=== PATIENT | male | born 1945 | race Caucasian/White ===

== ENCOUNTER 2016-06-08 15:05 | Inpatient (IN) | payer OTHER, BC ==
[2016-06-08] MEDS ORDERED: REQUIP PO PRN (16:04)
[2016-06-08] MEDS ORDERED: ZOFRAN INJ 4 MG VIAL IVP PRN (16:04)
[2016-06-08] MEDS ORDERED: LEVAQUIN PREMIX IV 750 MG 750 MG/150 ML BAG IV SCH (16:04)
[2016-06-08] MEDS ORDERED: SOLU-Medrol 125 MG VIAL IVP ONE (16:04)
[2016-06-08] MEDS ORDERED: TUSSIONEX PENNKINETIC SUSP PO PRN (16:04)
[2016-06-08] MEDS ORDERED: NS 1000 ML 1,000 ML IV ONE ×2 (16:04→17:00)
[2016-06-08 16:32] VITALS: BMI 26.4
[2016-06-08] MEDS ORDERED: DUONEB 0.5 MG/3 MG ONE (16:43)
[2016-06-08] MEDS ORDERED: SALINE 3% 15 ML NEB TX ONE (16:44)
[2016-06-08] MEDS: ROBITUSSIN DM PO SCH ×2 (16:46→21:57)
[2016-06-08 16:49] LABS: BASOPHILS # (AUTO) 0.1 X10^3/uL (0.0-0.1); EOSINOPHILS # (AUTO) 0.1 x10^3/uL (0.0-0.2); EOSINOPHILS % (AUTO) 1.1 % (0.9-2.9); HEMATOCRIT 38.9 % (42.0-54.0); HEMOGLOBIN 13.4 g/dL (13.5-18.0); LYMPHOCYTES # (AUTO) 1.5 X10^3/uL (1.3-2.9); LYMPHOCYTES % (AUTO) 16.8 % (21.0-51.0); MEAN CORPUSCULAR HEMOGLOBIN 29.4 pg (27.0-34.0); MEAN CORPUSCULAR HGB CONC 34.5 g/dL (33.0-35.0); MEAN CORPUSCULAR VOLUME 85.2 fL (80.0-100.0); MEAN PLATELET VOLUME 7.5 fL (7.4-11.0); MONOCYTES % (AUTO) 11.4 % (0.0-13.0); NEUTROPHILS # (AUTO) 6.1 x10^3/uL (2.2-4.8); NEUTROPHILS % (AUTO) 69.7 % (42.0-75.0); PLATELET COUNT 250 X10^3/uL (150.0-450.0); RED BLOOD COUNT 4.57 X10^6/uL (4.7-6.0); RED CELL DISTRIBUTION WIDTH 13.7 % (11.6-16.5); WHITE BLOOD COUNT 8.8 X10^3/uL (3.6-10.0)
[2016-06-08] MEDS: MAGIC MOUTHWASH MT SCH ×2 (16:49→21:57)
[2016-06-08] MEDS: NS 1000 ML 1,000 ML IV SCH (16:50)
[2016-06-08] MEDS: DUONEB 0.5 MG/3 MG NEB SCH ×2 (17:00→20:33)
[2016-06-08 17:09] LABS: ALANINE AMINOTRANSFERASE 24 Units/L (12-78); ALBUMIN 3.5 g/dL (3.4-5.0); ALKALINE PHOSPHATASE 59 Units/L (46-116); ASPARTATE AMINO TRANSFERASE 19 Units/L (15-37); BLOOD UREA NITROGEN 28 mg/dL (7-18); CALCIUM 8.6 mg/dL (8.5-10.1); CARBON DIOXIDE 29.4 mmol/L (21-32); CHLORIDE 103 mmol/L (98-107); CKMB % 3.6 % (<4); CREATINE KINASE 28 Units/L (39-308); CREATINE KINASE MB < 1.0 ng/mL (0-4.0); CREATININE 2.45 mg/dL (0.70-1.30); GLUCOSE 92 mg/dL (65-99); SODIUM 142 mmol/L (136-145); TOTAL PROTEIN 7.3 g/dL (6.4-8.2); TROPONIN I < 0.02 ng/mL (0-1.5); eGFR BLACK RACES 34 (>60); eGFR NON BLACK RACES 28 (>60)
[2016-06-08] MEDS ORDERED: SALINE 3% 15 ML NEB TX NEB ONE (17:14)
[2016-06-08] MEDS ORDERED: NORCO 5/325 MG TAB PO PRN (17:17)
[2016-06-08 19:38] LABS: BILIRUBIN,URINE NEGATIVE (NEGATIVE); BLOOD/HEMOGLOBIN,URINE 2+ (NEGATIVE); GLUCOSE, URINE NEGATIVE (NEGATIVE); KETONES,URINE NEGATIVE (NEGATIVE); LEUKOCYTE ESTERASE ,URINE NEGATIVE (NEGATIVE); NITRITES,URINE NEGATIVE (NEGATIVE); PROTEIN,URINE 2+ (NEGATIVE); UROBILINOGEN,URINE NORMAL (NORMAL)
[2016-06-08] MEDS: LEVAQUIN PREMIX IV 750 MG 750 MG/150 ML BAG IV SCH (19:39)
[2016-06-08 19:46] LABS: APPEARANCE,URINE CLEAR (CLEAR); COLOR,URINE YELLOW (YELLOW); RBC,URINE 0 /HPF (NEGATIVE)
[2016-06-08 19:47] LABS: BACTERIA,URINE TRACE /HPF (NEGATIVE); SQUAMOUS EPITHELIAL CELL,UR RARE /HPF (NEGATIVE)
[2016-06-08] MEDS: PROTONIX INJ 40 MG VIAL IVP SCH (20:02)
[2016-06-08] MEDS: PEPCID 20 MG IV PREMIX* 20 MG/50 ML BAG IV SCH (20:03)
[2016-06-08 20:44] LABS: CKMB % 4.4 % (<4); CREATINE KINASE 23 Units/L (39-308); CREATINE KINASE MB < 1.0 ng/mL (0-4.0); TROPONIN I < 0.02 ng/mL (0-1.5)
[2016-06-08] MEDS ORDERED: [UNRECOGNIZED DRUG - REMARK] PO SCH (21:00)
[2016-06-08] MEDS: SOLU-Medrol 125 MG VIAL IVP SCH (21:58)
--- NOTE | 2016-06-08 22:35 | RAD ---
HISTORY: Cough Study: Portable AP chest Comparison: 04/08/2013 Findings: The trachea is midline. The cardiac silhouette is unremarkable. The lungs are clear without focal infiltrate or effusion. The bony thorax is unremarkable. IMPRESSION: Stable chest with no acute abnormality seen. Reported By:
[2016-06-09] MEDS: DUONEB 0.5 MG/3 MG NEB SCH ×6 (00:45→21:05)
[2016-06-09 01:09] LABS: CKMB % 4.8 % (<4); CREATINE KINASE 21 Units/L (39-308); CREATINE KINASE MB < 1.0 ng/mL (0-4.0); TROPONIN I < 0.02 ng/mL (0-1.5)
[2016-06-09] MEDS: SOLU-Medrol 125 MG VIAL IVP SCH ×4 (05:18→21:12)
[2016-06-09 05:22] LABS: BASOPHILS % (AUTO) 0.4 % (0.2-1.0); HEMOGLOBIN 11.6 g/dL (13.5-18.0); LYMPHOCYTES # (AUTO) 0.5 X10^3/uL (1.3-2.9); LYMPHOCYTES % (AUTO) 7.4 % (21.0-51.0); MEAN CORPUSCULAR HEMOGLOBIN 29.7 pg (27.0-34.0); MEAN CORPUSCULAR HGB CONC 35.1 g/dL (33.0-35.0); MEAN CORPUSCULAR VOLUME 84.7 fL (80.0-100.0); MEAN PLATELET VOLUME 7.6 fL (7.4-11.0); MONOCYTES # (AUTO) 0.1 x10^3/uL (0.3-0.8); MONOCYTES % (AUTO) 0.9 % (0.0-13.0); NEUTROPHILS # (AUTO) 5.9 x10^3/uL (2.2-4.8); NEUTROPHILS % (AUTO) 91.3 % (42.0-75.0); PLATELET COUNT 211 X10^3/uL (150.0-450.0); RED CELL DISTRIBUTION WIDTH 13.5 % (11.6-16.5); WHITE BLOOD COUNT 6.5 X10^3/uL (3.6-10.0)
[2016-06-09] MEDS: NS 1000 ML 1,000 ML IV SCH ×2 (05:24→17:26)
[2016-06-09 05:35] LABS: ALBUMIN 2.8 g/dL (3.4-5.0); CALCIUM 8.1 mg/dL (8.5-10.1); CARBON DIOXIDE 23.7 mmol/L (21-32); COR CA(FOR HYPOALB) 9.1 mg/dL (8.5-10.1); CREATININE 2.02 mg/dL (0.70-1.30); TOTAL PROTEIN 6.2 g/dL (6.4-8.2)
[2016-06-09 05:53] LABS: PLATELET MORPHOLOGY COMMENT NORMAL (NORMAL)
[2016-06-09] MEDS: PEPCID 20 MG IV PREMIX* 20 MG/50 ML BAG IV SCH ×2 (08:05→20:33)
[2016-06-09] MEDS: MAGIC MOUTHWASH MT SCH ×4 (08:05→20:33)
[2016-06-09] MEDS: PROTONIX INJ 40 MG VIAL IVP SCH (08:06)
[2016-06-09] MEDS: ROBITUSSIN DM PO SCH ×4 (08:06→20:34)
[2016-06-09] MEDS: SINGULAIR TAB 10 MG PO SCH (08:06)
[2016-06-09 08:53] LABS: MYCOPLASMA PNEUMONIAE IGM AB NEGATIVE (NEGATIVE)
[2016-06-09] MEDS: ZyrTEC TAB 10 MG PO SCH (20:34)
[2016-06-10] MEDS: DUONEB 0.5 MG/3 MG NEB SCH ×6 (00:45→20:47)
[2016-06-10] MEDS: SOLU-Medrol 125 MG VIAL IVP SCH ×3 (05:00→21:46)
[2016-06-10] MEDS: NS 1000 ML 1,000 ML IV SCH ×4 (05:01→20:17)
[2016-06-10 05:52] LABS: ALBUMIN 2.6 g/dL (3.4-5.0); CARBON DIOXIDE 23.5 mmol/L (21-32); COR CA(FOR HYPOALB) 9.1 mg/dL (8.5-10.1); CREATININE 2.05 mg/dL (0.70-1.30); TOTAL PROTEIN 5.6 g/dL (6.4-8.2)
[2016-06-10 06:12] LABS: BASOPHILS % (AUTO) 0.1 % (0.2-1.0); HEMATOCRIT 30.2 % (42.0-54.0); HEMOGLOBIN 10.3 g/dL (13.5-18.0); LYMPHOCYTES # (AUTO) 0.7 X10^3/uL (1.3-2.9); LYMPHOCYTES % (AUTO) 3.5 % (21.0-51.0); MEAN CORPUSCULAR HEMOGLOBIN 29.3 pg (27.0-34.0); MEAN CORPUSCULAR VOLUME 86.4 fL (80.0-100.0); MEAN PLATELET VOLUME 7.7 fL (7.4-11.0); MONOCYTES # (AUTO) 0.5 x10^3/uL (0.3-0.8); MONOCYTES % (AUTO) 2.4 % (0.0-13.0); NEUTROPHILS # (AUTO) 19.3 x10^3/uL (2.2-4.8); PLATELET COUNT 216 X10^3/uL (150.0-450.0); RED CELL DISTRIBUTION WIDTH 14.1 % (11.6-16.5)
[2016-06-10 06:16] LABS: WHITE BLOOD COUNT 20.5 X10^3/uL (3.6-10.0)
[2016-06-10 07:42] LABS: BAND NEUTROPHILS % 6 % (0-10); PLATELET MORPHOLOGY COMMENT NORMAL (NORMAL)
[2016-06-10 08:00] LABS: BAND NEUTROPHILS % 6 % (0-10)
[2016-06-10] MEDS: SINGULAIR TAB 10 MG PO SCH (08:16)
[2016-06-10] MEDS: MAGIC MOUTHWASH MT SCH ×4 (08:16→21:45)
[2016-06-10] MEDS: ROBITUSSIN DM PO SCH ×4 (08:16→21:44)
[2016-06-10] MEDS: PROTONIX INJ 40 MG VIAL IVP SCH (08:17)
[2016-06-10] MEDS: PEPCID 20 MG IV PREMIX* 20 MG/50 ML BAG IV SCH (08:17)
[2016-06-10] MEDS: MAGNESIUM SULFATE 1 GM/100 mL PREMIX 1 GM/100 ML BAG IV SCH ×2 (08:20→08:21)
[2016-06-10] MEDS: ALBUMIN HUMAN 25%- 100ML 100 ML IV SCH (08:24)
[2016-06-10] MEDS ORDERED: PHARMACY CONSULT - DOSE _____ XX SCH (10:00)
[2016-06-10] MEDS: FORTAZ or TAZICEF INJ 1 GM in NS 50 ML IV + SPIKE MINIBAG* 50 ML IV SCH ×2 (10:22→21:46)
--- NOTE | 2016-06-10 19:10 | DR.UPDATE ---
H&P Update History and Physical Update: HISTORY AND PHYSICAL UPDATE FOR ADMISSION 06/08/16 MR. DAVID'S H&P WAS COMPLETED IN OUR OFFICE PRIOR TO ADMISSION. HE HAS BEEN SEEN AND EXAMINED WITH NO CHANGES NOTED.
[2016-06-10 19:12] LABS: CALCIUM 7.8 mg/dL (8.5-10.1); CARBON DIOXIDE 20.8 mmol/L (21-32); CREATININE 1.87 mg/dL (0.70-1.30)
--- NOTE | 2016-06-10 19:25 | PCM.PROG ---
Progress Note - Progress Note for Day of Date: 06/09/16 - Subjective Subjective: PATIENT RESTS IN BED. PATIENT REPORTS HE HAS BEEN SICK FOR SEVERAL WEEKS. PATIENT HAS FAILED OUTPATIENT TREATMENT FOR BRONCHOPNEUMONIA WITH ORAL ANTIBIOTICS AND INJECTIONS. HE WAS NOTED WITH A LOW BLOOD PRESSURE AT OUR OFFICE YESTERDAY. BLOOD PRESSURE IS IMPROVED TODAY, 113/67. WE HAVE HELD BLOOD PRESSURE MEDICATIONS. PATIENT IS NOTED WITH A COARSE, NON-PRODUCTIVE COUGH. PATIENT REPORTS COUGH IS PERSISTENT. ON AUSCULTATION, LUNGS ARE NOTED WITH WHEEZING THROUGHOUT. CBC WNL EXCEPT: H/H 11.6/33.0. CMP WNL EXCEPT: CHL 108, BUN/CREAT 29/2.02, GFR 35, GLUCOSE 195, CALCIUM 8.1, TOT PROTEIN 6.2, ALBUMIN 2.8. MYCOPLASMA PNEUMONIA NEGATIVE. WE WILL CONTINUE IV ANTIBIOTICS, AGGRESSIVE NEB TREATMENTS, AND CONTINUE TO MONITOR. WE WILL FOLLOW UP IN AM WITH LABS AND CHEST XRAY. - Past Medical Family Social History Past Med/Fam/Surg Hx: No changes since H&P Allergies: Allergies No Known Drug Allergy Allergy (Verified 04/08/13 12:45) - Review of Systems ROS: No change since H&P - Vital Signs and I&O's Vital Signs: Temperature 97.9 F Pulse Rate [Apical] 91 Pulse Rate 66 Respiratory Rate 21 Blood Pressure [Left Arm] 161/72 Blood Pressure [Right Arm] 118/63 Blood Pressure 161/72 O2 Sat by Pulse Oximetry 97 Intake and Output: Intake & Output 06/08/16 06/09/16 06/10/16 06/11/16 11:59 11:59 11:59 11:59 Intake Total 2180 3508 2930 Output Total 250 1600 650 Balance 1930 1908 2280 - Physical Exam Oriented: Normal, Time, Person, Place Eyes: Normal. negative: Blurred Vision, Diplopia, Discharge, Pain, Redness, Photophobia Ear: Normal. negative: Swelling, Ecchymosis, Hemotypanum, Abrasion, Laceration Nose: Normal. negative: Injected, Discharge, Blood Throat: Normal. negative: Tonsillar Hypertrophy, Red, Exudate Respiratory: Generalized, Wheezes Cardiovascular: Normal. negative: Murmur, Edema : Normal. negative: Dysuria, Hematuria, Frequency, Discharge, Testicular Pain Auscultation: Bowel Sounds: Normal. negative: Bruit Palpation: Normal. negative: Spleen Enlarged, Liver Enlarged, Mass Pulsatile Tenderness: Normal. negative: Rebound, Guarding, Rigidity Skin: Normal. negative: Diaphoresis, Wound, Bruising, Ecchymosis Musculoskeletal: Normal Psychiatric: Normal Mood Description: Calm, Appropriate Affect: Normal Speech Pattern: Clear, Appropriate - Laboratory and Diagnostics Result Diagrams: 06/10/16 05:00 06/10/16 05:00 Labs: 06/08/16 14:30 Blood Blood Culture - Preliminary 06/08/16 14:25 Blood Blood Culture - Preliminary Laboratory WBC 20.5 X10^3/uL (3.6-10.0) H* 06/10/16 05:00 RBC 3.50 X10^6/uL (4.7-6.0) L 06/10/16 05:00 Hgb 10.3 g/dL (13.5-18.0) L 06/10/16 05:00 Hct 30.2 % (42.0-54.0) L 06/10/16 05:00 MCV 86.4 fL (80.0-100.0) 06/10/16 05:00 MCH 29.3 pg (27.0-34.0) 06/10/16 05:00 MCHC 34.0 g/dL (33.0-35.0) 06/10/16 05:00 RDW 14.1 % (11.6-16.5) 06/10/16 05:00 Plt Count 216 X10^3/uL (150.0-450.0) 06/10/16 05:00 Plt Count Comment Adequate (ADEQUATE) 06/10/16 05:00 MPV 7.7 fL (7.4-11.0) 06/10/16 05:00 Neut % 94.0 % (42.0-75.0) H 06/10/16 05:00 Lymph % 3.5 % (21.0-51.0) L 06/10/16 05:00 [place] % 2.4 % (0.0-13.0) 06/10/16 05:00 Eos % 0.0 % (0.9-2.9) L 06/10/16 05:00 Baso % 0.1 % (0.2-1.0) L 06/10/16 05:00 Neut # 19.3 x10^3/uL (2.2-4.8) H 06/10/16 05:00 Lymph # 0.7 X10^3/uL (1.3-2.9) L 06/10/16 05:00 [place] # 0.5 x10^3/uL (0.3-0.8) 06/10/16 05:00 Eos # 0.0 x10^3/uL (0.0-0.2) 06/10/16 05:00 Baso # 0.0 X10^3/uL (0.0-0.1) 06/10/16 05:00 Absolute Nucleated RBC 0.0 /100WBC 06/10/16 05:00 Total Counted 100 06/10/16 05:00 Neutrophils % (Manual) 90 % (39-76) H 06/10/16 05:00 Band Neutrophils % 6 % (0-10) 06/10/16 05:00 Lymphocytes % (Manual) 2 % (13-43) L 06/10/16 05:00 Monocytes % (Manual) 2 % (4-9) L 06/10/16 05:00 Plt Morphology Comment Normal (NORMAL) 06/10/16 05:00 RBC Morphology Normal (NORMAL) 06/10/16 05:00 Sodium 145 mmol/L (136-145) 06/10/16 05:00 Corrected Sodium 146 mmol/L (136-145) H 06/10/16 05:00 Potassium 3.0 mmol/L (3.5-5.1) L* 06/10/16 05:00 Chloride 110 mmol/L (98-107) H 06/10/16 05:00 Carbon Dioxide 23.5 mmol/L (21-32) 06/10/16 05:00 BUN 25 mg/dL (7-18) H 06/10/16 05:00 Creatinine 2.05 mg/dL (0.70-1.30) H 06/10/16 05:00 Est GFR (MDRD) Af Amer 41 (>60) L 06/10/16 05:00 Est GFR (MDRD) Non-Af 34 (>60) L 06/10/16 05:00 Glucose 157 mg/dL (65-99) H 06/10/16 05:00 Lactic Acid 0.6 mmol/L (0.4-2.0) 06/08/16 16:55 Calcium 8.0 mg/dL (8.5-10.1) L 06/10/16 05:00 Corrected Calcium 9.1 mg/dL (8.5-10.1) 06/10/16 05:00 Magnesium 1.6 mg/dL (1.7-2.9) L 06/10/16 05:00 Total Bilirubin 0.10 mg/dL (0.2-1.0) L 06/10/16 05:00 AST 17 Units/L (15-37) 06/10/16 05:00 ALT 18 Units/L (12-78) 06/10/16 05:00 Alkaline Phosphatase 43 Units/L (46-116) L 06/10/16 05:00 Creatine Kinase 21 Units/L (39-308) L 06/09/16 00:20 CK-MB (CK-2) < 1.0 ng/mL (0-4.0) 06/09/16 00:20 CK/CKMB % Calc 4.8 % (<4) 06/09/16 00:20 Troponin I < 0.02 ng/mL (0-1.5) 06/09/16 00:20 Total Protein 5.6 g/dL (6.4-8.2) L 06/10/16 05:00 Albumin 2.6 g/dL (3.4-5.0) L 06/10/16 05:00 Globulin 3.0 g/dL (2.5-4.5) 06/10/16 05:00 Albumin/Globulin Ratio 0.9 Ratio (1.1-2.1) L 06/10/16 05:00 Specimen Type Clean catch urine 06/08/16 19:33 Urine Color Yellow (YELLOW) 06/08/16 19:33 Urine Appearance Clear (CLEAR) 06/08/16 19:33 Urine pH 5.0 (5.0 - 8.0) 06/08/16 19:33 Ur Specific [place] 1.015 (1.000-1.030) 06/08/16 19:33 Urine Protein 2+ (NEGATIVE) 06/08/16 19:33 Urine Glucose (UA) Negative (NEGATIVE) 06/08/16 19:33 Urine Ketones Negative (NEGATIVE) 06/08/16 19:33 Urine Occult Blood 2+ (NEGATIVE) 06/08/16 19:33 Urine Nitrite Negative (NEGATIVE) 06/08/16 19:33 Urine Bilirubin Negative (NEGATIVE) 06/08/16 19:33 Urine Urobilinogen Normal (NORMAL) 06/08/16 19:33 Ur Leukocyte Esterase Negative (NEGATIVE) 06/08/16 19:33 Urine RBC 0 /HPF (NEGATIVE) 06/08/16 19:33 Urine WBC 0-3 /HPF (NEGATIVE) 06/08/16 19:33 Ur Squamous Epith Cells Rare /HPF (NEGATIVE) 06/08/16 19:33 Urine Bacteria Trace /HPF (NEGATIVE) 06/08/16 19:33 Ur Culture Indicated? No/not indicated 06/08/16 19:33 Mycoplasma pneumon IgG Negative (NEGATIVE) 06/09/16 04:45 - Plan (1) Bronchopneumonia Status: Acute Plan: CONTINUE IV LEVAQUIN, NEB TREATMENTS, ROBITUSSIN, TUSSIONEX, MONITOR LABS AND CHEST XRAY. (2) Hypovolemic shock Status: Acute Plan: CONTINUE TO MONITOR VITAL SIGNS, CONTINUE IV ANTIBIOTICS, LABS IN AM. (3) CAD (coronary artery disease) Status: Chronic Qualifiers: Coronary Disease-Associated Artery/Lesion type: [place] artery [place] vs. transplanted heart: [place] heart Associated angina: without angina Qualified Code(s): I25.10 - Atherosclerotic heart disease of [place] coronary artery without angina pectoris (4) Essential hypertension Status: Chronic (5) Hypertension Status: Chronic Qualifiers: Hypertension type: essential hypertension Qualified Code(s): I10 - Essential (primary) hypertension (6) GERD (gastroesophageal reflux disease) Status: Chronic Qualifiers: Esophagitis presence: esophagitis presence not specified Qualified Code(s) : K21.9 - Gastro-esophageal reflux disease without esophagitis (7) History of cardiac arrhythmia Status: Chronic (8) Hx of transient ischemic attack (TIA) Status: Chronic (9) Stented coronary artery Status: Chronic (10) Anxiety Status: Chronic
[2016-06-10] MEDS ORDERED: K-DUR TAB 20 MEQ PO PRN (19:39)
[2016-06-10] MEDS ORDERED: K-LYTE EFFERVESCENT PO PRN (19:39)
[2016-06-10] MEDS ORDERED: POTASSIUM CHLORIDE LIQ 20 MEQ UDC PO PRN (19:39)
--- NOTE | 2016-06-10 19:42 | PCM.PROG ---
Progress Note - Progress Note for Day of Date: 06/10/16 - Subjective Subjective: PATIENT RESTS IN BED. HIS FACE IS FLUSHED. PATIENT CONTINUES WITH A COARSE, PRODUCTIVE COUGH. PATIENT REPORTS SPUTUM IS THICK AND DIFFICULT TO CLEAR. COUGH IS PERSISTENT. ON AUSCULTATION, LUNGS CONTINUE WITH WHEEZING THROUGHOUT. CBC WNL EXCEPT: WBC 20.5, H/H 10.3/30.2. CMP WNL EXCEPT: POTASSIUM 3.0, CHL 110, BUN/CREAT 25/2.05, GFR 34, GLUCOSE 157, CALCIUM 8.0, TOT PROTEIN 5.6, ALBUMIN 2.6. MAGNESIUM 1.6. EKG: SINUS RHYTHM, RBBB, RATE 98. WE WILL ADD FORTAZ IV, START ALBUMIN IV, ADMINISTER TWO MAG-RIDERS, START POTASSIUM PROTOCOL, CONTINUE IV ANTIBIOTICS, AGGRESSIVE NEB TREATMENTS, AND CONTINUE TO MONITOR. WE WILL FOLLOW UP IN AM WITH LABS AND CHEST XRAY. - Past Medical Family Social History Past Med/Fam/Surg Hx: No changes since H&P Allergies: Allergies No Known Drug Allergy Allergy (Verified 04/08/13 12:45) - Review of Systems ROS: No change since H&P - Vital Signs and I&O's Vital Signs: Temperature 97.9 F Pulse Rate [Apical] 91 Pulse Rate 66 Respiratory Rate 21 Blood Pressure [Left Arm] 161/72 Blood Pressure [Right Arm] 118/63 Blood Pressure 161/72 O2 Sat by Pulse Oximetry 97 Intake and Output: Intake & Output 06/08/16 06/09/16 06/10/16 06/11/16 11:59 11:59 11:59 11:59 Intake Total 2180 3508 2930 Output Total 250 1600 650 Balance 1930 1908 2280 - Physical Exam Oriented: Normal, Time, Person, Place Eyes: Normal. negative: Blurred Vision, Diplopia, Discharge, Pain, Redness, Photophobia Ear: Normal. negative: Swelling, Ecchymosis, Hemotypanum, Abrasion, Laceration Nose: Normal. negative: Injected, Discharge, Blood Throat: Normal. negative: Tonsillar Hypertrophy, Red, Exudate Respiratory: Generalized, Wheezes Cardiovascular: Normal. negative: Murmur, Edema : Normal. negative: Dysuria, Hematuria, Frequency, Discharge, Testicular Pain Auscultation: Bowel Sounds: Normal. negative: Bruit Palpation: Normal. negative: Spleen Enlarged, Liver Enlarged, Mass Pulsatile Tenderness: Normal. negative: Rebound, Guarding, Rigidity Skin: Normal. negative: Diaphoresis, Wound, Bruising, Ecchymosis Musculoskeletal: Normal Psychiatric: Normal Mood Description: Calm, Appropriate Affect: Normal Speech Pattern: Clear, Appropriate - Laboratory and Diagnostics Result Diagrams: 06/10/16 05:00 06/10/16 18:50 Labs: 06/08/16 14:30 Blood Blood Culture - Preliminary 06/08/16 14:25 Blood Blood Culture - Preliminary Laboratory WBC 20.5 X10^3/uL (3.6-10.0) H* 06/10/16 05:00 RBC 3.50 X10^6/uL (4.7-6.0) L 06/10/16 05:00 Hgb 10.3 g/dL (13.5-18.0) L 06/10/16 05:00 Hct 30.2 % (42.0-54.0) L 06/10/16 05:00 MCV 86.4 fL (80.0-100.0) 06/10/16 05:00 MCH 29.3 pg (27.0-34.0) 06/10/16 05:00 MCHC 34.0 g/dL (33.0-35.0) 06/10/16 05:00 RDW 14.1 % (11.6-16.5) 06/10/16 05:00 Plt Count 216 X10^3/uL (150.0-450.0) 06/10/16 05:00 Plt Count Comment Adequate (ADEQUATE) 06/10/16 05:00 MPV 7.7 fL (7.4-11.0) 06/10/16 05:00 Neut % 94.0 % (42.0-75.0) H 06/10/16 05:00 Lymph % 3.5 % (21.0-51.0) L 06/10/16 05:00 [place] % 2.4 % (0.0-13.0) 06/10/16 05:00 Eos % 0.0 % (0.9-2.9) L 06/10/16 05:00 Baso % 0.1 % (0.2-1.0) L 06/10/16 05:00 Neut # 19.3 x10^3/uL (2.2-4.8) H 06/10/16 05:00 Lymph # 0.7 X10^3/uL (1.3-2.9) L 06/10/16 05:00 [place] # 0.5 x10^3/uL (0.3-0.8) 06/10/16 05:00 Eos # 0.0 x10^3/uL (0.0-0.2) 06/10/16 05:00 Baso # 0.0 X10^3/uL (0.0-0.1) 06/10/16 05:00 Absolute Nucleated RBC 0.0 /100WBC 06/10/16 05:00 Total Counted 100 06/10/16 05:00 Neutrophils % (Manual) 90 % (39-76) H 06/10/16 05:00 Band Neutrophils % 6 % (0-10) 06/10/16 05:00 Lymphocytes % (Manual) 2 % (13-43) L 06/10/16 05:00 Monocytes % (Manual) 2 % (4-9) L 06/10/16 05:00 Plt Morphology Comment Normal (NORMAL) 06/10/16 05:00 RBC Morphology Normal (NORMAL) 06/10/16 05:00 Sodium 143 mmol/L (136-145) 06/10/16 18:50 Corrected Sodium 144 mmol/L (136-145) 06/10/16 18:50 Potassium 3.1 mmol/L (3.5-5.1) L 06/10/16 18:50 Chloride 108 mmol/L (98-107) H 06/10/16 18:50 Carbon Dioxide 20.8 mmol/L (21-32) L 06/10/16 18:50 BUN 24 mg/dL (7-18) H 06/10/16 18:50 Creatinine 1.87 mg/dL (0.70-1.30) H 06/10/16 18:50 Est GFR (MDRD) Af Amer 46 (>60) L 06/10/16 18:50 Est GFR (MDRD) Non-Af 38 (>60) L 06/10/16 18:50 Glucose 139 mg/dL (65-99) H 06/10/16 18:50 Lactic Acid 0.6 mmol/L (0.4-2.0) 06/08/16 16:55 Calcium 7.8 mg/dL (8.5-10.1) L 06/10/16 18:50 Corrected Calcium 9.1 mg/dL (8.5-10.1) 06/10/16 05:00 Magnesium 1.6 mg/dL (1.7-2.9) L 06/10/16 05:00 Total Bilirubin 0.10 mg/dL (0.2-1.0) L 06/10/16 05:00 AST 17 Units/L (15-37) 06/10/16 05:00 ALT 18 Units/L (12-78) 06/10/16 05:00 Alkaline Phosphatase 43 Units/L (46-116) L 06/10/16 05:00 Creatine Kinase 21 Units/L (39-308) L 06/09/16 00:20 CK-MB (CK-2) < 1.0 ng/mL (0-4.0) 06/09/16 00:20 CK/CKMB % Calc 4.8 % (<4) 06/09/16 00:20 Troponin I < 0.02 ng/mL (0-1.5) 06/09/16 00:20 Total Protein 5.6 g/dL (6.4-8.2) L 06/10/16 05:00 Albumin 2.6 g/dL (3.4-5.0) L 06/10/16 05:00 Globulin 3.0 g/dL (2.5-4.5) 06/10/16 05:00 Albumin/Globulin Ratio 0.9 Ratio (1.1-2.1) L 06/10/16 05:00 Specimen Type Clean catch urine 06/08/16 19:33 Urine Color Yellow (YELLOW) 06/08/16 19:33 Urine Appearance Clear (CLEAR) 06/08/16 19:33 Urine pH 5.0 (5.0 - 8.0) 06/08/16 19:33 Ur Specific [place] 1.015 (1.000-1.030) 06/08/16 19:33 Urine Protein 2+ (NEGATIVE) 06/08/16 19:33 Urine Glucose (UA) Negative (NEGATIVE) 06/08/16 19:33 Urine Ketones Negative (NEGATIVE) 06/08/16 19:33 Urine Occult Blood 2+ (NEGATIVE) 06/08/16 19:33 Urine Nitrite Negative (NEGATIVE) 06/08/16 19:33 Urine Bilirubin Negative (NEGATIVE) 06/08/16 19:33 Urine Urobilinogen Normal (NORMAL) 06/08/16 19:33 Ur Leukocyte Esterase Negative (NEGATIVE) 06/08/16 19:33 Urine RBC 0 /HPF (NEGATIVE) 06/08/16 19:33 Urine WBC 0-3 /HPF (NEGATIVE) 06/08/16 19:33 Ur Squamous Epith Cells Rare /HPF (NEGATIVE) 06/08/16 19:33 Urine Bacteria Trace /HPF (NEGATIVE) 06/08/16 19:33 Ur Culture Indicated? No/not indicated 06/08/16 19:33 Mycoplasma pneumon IgG Negative (NEGATIVE) 06/09/16 04:45 - Plan (1) Bronchopneumonia Status: Acute Plan: ADD FORTAZ IV, CONTINUE IV LEVAQUIN, NEB TREATMENTS, ROBITUSSIN, TUSSIONEX , MONITOR LABS AND CHEST XRAY. (2) Hypovolemic shock Status: Acute Plan: CONTINUE TO MONITOR VITAL SIGNS, CONTINUE IV ANTIBIOTICS, LABS IN AM. (3) Hypokalemia Status: Acute Plan: START POTASSIUM PROTOCOL, MONITOR LABS. (4) Hypomagnesemia Status: Acute Plan: ADMINISTER MAG-RIDERS, MONITOR LABS. (5) Hypoalbuminemia Status: Acute Plan: START ALBUMIN IV DAILY, MONITOR LABS. (6) CAD (coronary artery disease) Status: Chronic Qualifiers: Coronary Disease-Associated Artery/Lesion type: [place] artery [place] vs. transplanted heart: [place] Associated angina: without angina Qualified Code(s): I25.10 - Atherosclerotic heart disease of [place] coronary artery without angina pectoris (7) Essential hypertension Status: Chronic (8) Hypertension Status: Chronic Qualifiers: Hypertension type: essential hypertension Qualified Code(s): I10 - Essential (primary) hypertension (9) GERD (gastroesophageal reflux disease) Status: Chronic Qualifiers: Esophagitis presence: esophagitis presence not specified Qualified Code(s) : K21.9 - Gastro-esophageal reflux disease without esophagitis (10) History of cardiac arrhythmia Status: Chronic (11) Hx of transient ischemic attack (TIA) Status: Chronic (12) Stented coronary artery Status: Chronic (13) Anxiety Status: Chronic
[2016-06-10] MEDS: LEVAQUIN PREMIX IV 750 MG 750 MG/150 ML BAG IV SCH (19:51)
[2016-06-10] MEDS ORDERED: K-DUR TAB 20 MEQ PO SCH (20:00)
[2016-06-10] MEDS: ZyrTEC TAB 10 MG PO SCH (21:44)
[2016-06-11] MEDS: DUONEB 0.5 MG/3 MG NEB SCH ×6 (00:58→20:36)
[2016-06-11] MEDS: NS 1000 ML 1,000 ML IV SCH ×4 (02:00→21:08)
[2016-06-11 04:47] LABS: ALBUMIN 2.8 g/dL (3.4-5.0); CALCIUM 7.5 mg/dL (8.5-10.1); CARBON DIOXIDE 23.6 mmol/L (21-32); COR CA(FOR HYPOALB) 8.5 mg/dL (8.5-10.1); CREATININE 1.73 mg/dL (0.70-1.30); TOTAL PROTEIN 5.6 g/dL (6.4-8.2)
[2016-06-11 05:32] LABS: BASOPHILS % (AUTO) 0.1 % (0.2-1.0); HEMATOCRIT 29.3 % (42.0-54.0); LYMPHOCYTES # (AUTO) 0.4 X10^3/uL (1.3-2.9); LYMPHOCYTES % (AUTO) 2.1 % (21.0-51.0); MEAN CORPUSCULAR HEMOGLOBIN 29.5 pg (27.0-34.0); MEAN CORPUSCULAR VOLUME 86.6 fL (80.0-100.0); MEAN PLATELET VOLUME 7.6 fL (7.4-11.0); MONOCYTES # (AUTO) 0.5 x10^3/uL (0.3-0.8); MONOCYTES % (AUTO) 2.4 % (0.0-13.0); NEUTROPHILS # (AUTO) 18.9 x10^3/uL (2.2-4.8); NEUTROPHILS % (AUTO) 95.4 % (42.0-75.0); PLATELET COUNT 222 X10^3/uL (150.0-450.0); RED BLOOD COUNT 3.38 X10^6/uL (4.7-6.0); RED CELL DISTRIBUTION WIDTH 13.7 % (11.6-16.5); WHITE BLOOD COUNT 19.8 X10^3/uL (3.6-10.0)
[2016-06-11] MEDS: SOLU-Medrol 125 MG VIAL IVP SCH ×3 (05:48→21:03)
[2016-06-11 06:01] LABS: BAND NEUTROPHILS % 5 % (0-10); PLATELET MORPHOLOGY COMMENT NORMAL (NORMAL)
--- NOTE | 2016-06-11 07:04 | RAD ---
HISTORY: Cough Study: Single-view chest Comparison: June 08, 2016 Findings: The trachea is midline. The cardiac silhouette is unremarkable. The lungs are clear without focal infiltrate or effusion. The bony thorax is unremarkable. IMPRESSION: 1. No acute cardiopulmonary disease. Reported By:
[2016-06-11] MEDS: PEPCID 20 MG IV PREMIX* 20 MG/50 ML BAG IV SCH (09:46)
[2016-06-11] MEDS: ROBITUSSIN DM PO SCH ×4 (09:47→21:03)
[2016-06-11] MEDS: MAGIC MOUTHWASH MT SCH ×4 (09:47→21:03)
[2016-06-11] MEDS: FORTAZ or TAZICEF INJ 1 GM in NS 50 ML IV + SPIKE MINIBAG* 50 ML IV SCH ×2 (09:47→21:04)
[2016-06-11] MEDS: PROTONIX INJ 40 MG VIAL IVP SCH (09:47)
[2016-06-11] MEDS: SINGULAIR TAB 10 MG PO SCH (09:48)
[2016-06-11] MEDS: ALBUMIN HUMAN 25%- 100ML 100 ML IV SCH (09:48)
[2016-06-11] MEDS: ZyrTEC TAB 10 MG PO SCH (21:03)
[2016-06-12] MEDS: DUONEB 0.5 MG/3 MG NEB SCH ×6 (01:01→20:42)
[2016-06-12 06:25] LABS: CALCIUM 7.8 mg/dL (8.5-10.1); CARBON DIOXIDE 22.2 mmol/L (21-32); COR CA(FOR HYPOALB) 8.6 mg/dL (8.5-10.1); CREATININE 1.85 mg/dL (0.70-1.30); TOTAL PROTEIN 5.5 g/dL (6.4-8.2)
[2016-06-12 06:25] LABS: BASOPHILS % (AUTO) 0.1 % (0.2-1.0); HEMATOCRIT 27.4 % (42.0-54.0); HEMOGLOBIN 9.5 g/dL (13.5-18.0); LYMPHOCYTES # (AUTO) 0.4 X10^3/uL (1.3-2.9); LYMPHOCYTES % (AUTO) 2.8 % (21.0-51.0); MEAN CORPUSCULAR HGB CONC 34.7 g/dL (33.0-35.0); MEAN CORPUSCULAR VOLUME 86.5 fL (80.0-100.0); MEAN PLATELET VOLUME 7.8 fL (7.4-11.0); MONOCYTES # (AUTO) 0.6 x10^3/uL (0.3-0.8); MONOCYTES % (AUTO) 4.8 % (0.0-13.0); NEUTROPHILS # (AUTO) 12.4 x10^3/uL (2.2-4.8); NEUTROPHILS % (AUTO) 92.3 % (42.0-75.0); PLATELET COUNT 207 X10^3/uL (150.0-450.0); RED BLOOD COUNT 3.17 X10^6/uL (4.7-6.0); RED CELL DISTRIBUTION WIDTH 14.1 % (11.6-16.5); WHITE BLOOD COUNT 13.4 X10^3/uL (3.6-10.0)
--- NOTE | 2016-06-12 06:55 | RAD ---
Chest AP portable Indication: Pneumonia. Cough and congestion. Comparison: June 11, 2016. Findings: There is no pneumothorax. There is no consolidation. Heart size is normal. Impression: No acute chest process. Reported By:
[2016-06-12 07:17] LABS: BAND NEUTROPHILS % 6 % (0-10); PLATELET MORPHOLOGY COMMENT NORMAL (NORMAL)
[2016-06-12] MEDS: ALBUMIN HUMAN 25%- 100ML 100 ML IV SCH (09:30)
[2016-06-12] MEDS: PROTONIX INJ 40 MG VIAL IVP SCH (09:32)
[2016-06-12] MEDS: ROBITUSSIN DM PO SCH ×4 (09:32→20:18)
[2016-06-12] MEDS: SINGULAIR TAB 10 MG PO SCH (09:32)
[2016-06-12] MEDS: MAGIC MOUTHWASH MT SCH ×4 (09:33→20:18)
[2016-06-12] MEDS: PEPCID 20 MG IV PREMIX* 20 MG/50 ML BAG IV SCH (09:52)
[2016-06-12] MEDS: FORTAZ or TAZICEF INJ 1 GM in NS 50 ML IV + SPIKE MINIBAG* 50 ML IV SCH ×2 (10:19→20:18)
[2016-06-12] MEDS: NS 1000 ML 1,000 ML IV SCH (13:00)
[2016-06-12] MEDS: LEVAQUIN PREMIX IV 750 MG 750 MG/150 ML BAG IV SCH ×2 (17:50→19:05)
[2016-06-12] MEDS: ZyrTEC TAB 10 MG PO SCH (20:18)
[2016-06-13] MEDS: DUONEB 0.5 MG/3 MG NEB SCH ×6 (00:45→20:49)
[2016-06-13] MEDS: NS 1000 ML 1,000 ML IV SCH ×4 (03:33→20:54)
[2016-06-13 04:16] LABS: BASOPHILS % (AUTO) 0.1 % (0.2-1.0); HEMATOCRIT 28.2 % (42.0-54.0); HEMOGLOBIN 9.4 g/dL (13.5-18.0); LYMPHOCYTES # (AUTO) 0.9 X10^3/uL (1.3-2.9); LYMPHOCYTES % (AUTO) 6.4 % (21.0-51.0); MEAN CORPUSCULAR HEMOGLOBIN 29.3 pg (27.0-34.0); MEAN CORPUSCULAR HGB CONC 33.5 g/dL (33.0-35.0); MEAN CORPUSCULAR VOLUME 87.6 fL (80.0-100.0); MEAN PLATELET VOLUME 7.7 fL (7.4-11.0); MONOCYTES % (AUTO) 6.9 % (0.0-13.0); NEUTROPHILS # (AUTO) 12.8 x10^3/uL (2.2-4.8); NEUTROPHILS % (AUTO) 86.6 % (42.0-75.0); PLATELET COUNT 186 X10^3/uL (150.0-450.0); RED BLOOD COUNT 3.22 X10^6/uL (4.7-6.0); RED CELL DISTRIBUTION WIDTH 14.3 % (11.6-16.5); WHITE BLOOD COUNT 14.8 X10^3/uL (3.6-10.0)
[2016-06-13 04:30] LABS: ALANINE AMINOTRANSFERASE 20 Units/L (12-78); ALBUMIN 2.8 g/dL (3.4-5.0); ALKALINE PHOSPHATASE 37 Units/L (46-116); ASPARTATE AMINO TRANSFERASE 18 Units/L (15-37); BLOOD UREA NITROGEN 33 mg/dL (7-18); CALCIUM 7.9 mg/dL (8.5-10.1); CARBON DIOXIDE 23.1 mmol/L (21-32); COR CA(FOR HYPOALB) 8.9 mg/dL (8.5-10.1); GLUCOSE 95 mg/dL (65-99); SODIUM 149 mmol/L (136-145); TOTAL PROTEIN 5.2 g/dL (6.4-8.2); eGFR BLACK RACES 52 (>60); eGFR NON BLACK RACES 43 (>60)
[2016-06-13 04:32] LABS: CHLORIDE 116 mmol/L (98-107)
--- NOTE | 2016-06-13 07:24 | RAD ---
HISTORY: Follow up pneumonia Study: Chest one view Comparison: June 12, 2016 Findings: The heart is upper limits normal in size. No congestive heart failure is noted. No acute alveolar in filtrates or pleural effusions are identified. The bony thorax is unremarkable. IMPRESSION: No significant abnormality identified Reported By:
[2016-06-13] MEDS: ROBITUSSIN DM PO SCH ×4 (08:36→20:50)
[2016-06-13] MEDS: SINGULAIR TAB 10 MG PO SCH (08:36)
[2016-06-13] MEDS: PROTONIX INJ 40 MG VIAL IVP SCH (08:36)
[2016-06-13] MEDS: ALBUMIN HUMAN 25%- 100ML 100 ML IV SCH (08:37)
[2016-06-13] MEDS ORDERED: MILK OF MAGNESIA PO PRN (08:38)
[2016-06-13] MEDS ORDERED: COLACE CAP 100 MG PO PRN (08:38)
[2016-06-13] MEDS: MAGIC MOUTHWASH MT SCH ×4 (08:40→20:48)
[2016-06-13] MEDS: FORTAZ or TAZICEF INJ 1 GM in NS 50 ML IV + SPIKE MINIBAG* 50 ML IV SCH ×2 (09:23→20:51)
[2016-06-13] MEDS: PEPCID 20 MG IV PREMIX* 20 MG/50 ML BAG IV SCH (10:21)
[2016-06-13] MEDS ORDERED: K-DUR TAB 20 MEQ PO PRN (11:56)
[2016-06-13] MEDS ORDERED: REQUIP PO PRN (11:56)
[2016-06-13] MEDS ORDERED: TUSSIONEX PENNKINETIC SUSP PO PRN (11:56)
[2016-06-13] MEDS ORDERED: K-LYTE EFFERVESCENT PO PRN (11:56)
[2016-06-13] MEDS ORDERED: NORCO 5/325 MG TAB PO PRN (11:56)
[2016-06-13] MEDS ORDERED: POTASSIUM CHLORIDE LIQ 20 MEQ UDC PO PRN (11:56)
[2016-06-13] MEDS ORDERED: ZOFRAN INJ 4 MG VIAL IVP PRN (11:56)
[2016-06-13] MEDS: MILK OF MAGNESIA PO SCH ×3 (14:42→20:49)
--- NOTE | 2016-06-13 14:43 | PCM.PROG ---
Progress Note - Progress Note for Day of Date: 06/13/16 - Subjective Subjective: PATIENT RESTS IN BED, PLEASANT AFFECT. PATIENT REPORTS HE IS BEGINNING TO FEEL A LITTLE BETTER. PATIENT'S COUGH IS IMPROVING WITH THINNING SECRETIONS. PATIENT REPORTS CONSTIPATION. ABDOMEN IS NOTED WITH DISTENTION AND BOWEL SOUNDS ARE POSITIVE ON AUSCULTATION. ON AUSCULTATION OF LUNGS, SCATTERED RHONCHI AND SLIGHT WHEEZING ARE NOTED THROUGHOUT. CBC WNL EXCEPT: WBC 14.8, H/H 9.4/28.2. CMP WNL EXCEPT: SODIUM 149, CHL 116, BUN/CREAT 33/1.70 , GFR 43, CALCIUM 7.9, TOT PROTEIN 5.2, ALBUMIN 2.8. WE WILL TRANSFER PATIENT TO FLOOR, CONTINUE CURRENT TREATMENT OF IV LEVAQUIN, IV FORTAZ, ALBUMIN IV, NEB TREATMENTS, AND CONTINUE TO MONITOR. WE WILL START BOWEL REGIMEN OF MILK OF MAGNESIA, COLACE, AND MIRALAX, AND FOLLOW UP IN AM WITH LABS AND CHEST XRAY. - Past Medical Family Social History Past Med/Fam/Surg Hx: No changes since H&P Allergies: Allergies No Known Drug Allergy Allergy (Verified 04/08/13 12:45) - Review of Systems ROS: No change since H&P - Vital Signs and I&O's Vital Signs: Temperature 98.1 F Pulse Rate [Apical] 96 Pulse Rate 98 Respiratory Rate 24 Blood Pressure [Left Arm] 161/72 Blood Pressure [Right Arm] 198/88 Blood Pressure 161/72 O2 Sat by Pulse Oximetry 18 Intake and Output: Intake & Output 06/11/16 06/12/16 06/13/16 06/14/16 11:59 11:59 11:59 11:59 Intake Total 6245 2620 3796 Output Total 2181 503 4557 Balance 4295 1785 7576 - Physical Exam Oriented: Normal, Time, Person, Place Eyes: Normal. negative: Blurred Vision, Diplopia, Discharge, Pain, Redness, Photophobia Ear: Normal. negative: Swelling, Ecchymosis, Hemotypanum, Abrasion, Laceration Nose: Normal. negative: Injected, Discharge, Blood Throat: Normal. negative: Tonsillar Hypertrophy, Red, Exudate Respiratory: Generalized, Wheezes, Rhonchi Cardiovascular: Normal. negative: Murmur, Edema : Normal. negative: Dysuria, Hematuria, Frequency, Discharge, Testicular Pain Auscultation: Bowel Sounds: Normal. negative: Bruit Palpation: Normal. negative: Spleen Enlarged, Liver Enlarged, Mass Pulsatile Tenderness: Normal. negative: Rebound, Guarding, Rigidity Skin: Normal. negative: Diaphoresis, Wound, Bruising, Ecchymosis Musculoskeletal: Normal Psychiatric: Normal Mood Description: Calm, Appropriate Affect: Normal Speech Pattern: Clear, Appropriate - Laboratory and Diagnostics Result Diagrams: 06/13/16 03:27 06/13/16 03:27 Labs: 06/08/16 14:30 Blood Blood Culture - Final 06/08/16 14:25 Blood Blood Culture - Final Laboratory WBC 14.8 X10^3/uL (3.6-10.0) H 06/13/16 03:27 RBC 3.22 X10^6/uL (4.7-6.0) L 06/13/16 03:27 Hgb 9.4 g/dL (13.5-18.0) L 06/13/16 03:27 Hct 28.2 % (42.0-54.0) L 06/13/16 03:27 MCV 87.6 fL (80.0-100.0) 06/13/16 03:27 MCH 29.3 pg (27.0-34.0) 06/13/16 03:27 MCHC 33.5 g/dL (33.0-35.0) 06/13/16 03:27 RDW 14.3 % (11.6-16.5) 06/13/16 03:27 Plt Count 186 X10^3/uL (150.0-450.0) 06/13/16 03:27 Plt Count Comment Adequate (ADEQUATE) 06/12/16 03:58 MPV 7.7 fL (7.4-11.0) 06/13/16 03:27 Neut % 86.6 % (42.0-75.0) H 06/13/16 03:27 Lymph % 6.4 % (21.0-51.0) L 06/13/16 03:27 [place] % 6.9 % (0.0-13.0) 06/13/16 03:27 Eos % 0.0 % (0.9-2.9) L 06/13/16 03:27 Baso % 0.1 % (0.2-1.0) L 06/13/16 03:27 Neut # 12.8 x10^3/uL (2.2-4.8) H 06/13/16 03:27 Lymph # 0.9 X10^3/uL (1.3-2.9) L 06/13/16 03:27 [place] # 1.0 x10^3/uL (0.3-0.8) H 06/13/16 03:27 Eos # 0.0 x10^3/uL (0.0-0.2) 06/13/16 03:27 Baso # 0.0 X10^3/uL (0.0-0.1) 06/13/16 03:27 Absolute Nucleated RBC 0.0 /100WBC 06/13/16 03:27 Total Counted 100 06/12/16 03:58 Neutrophils % (Manual) 82 % (39-76) H 06/12/16 03:58 Band Neutrophils % 6 % (0-10) 06/12/16 03:58 Lymphocytes % (Manual) 4 % (13-43) L 06/12/16 03:58 Monocytes % (Manual) 8 % (4-9) 06/12/16 03:58 Plt Morphology Comment Normal (NORMAL) 06/12/16 03:58 RBC Morphology Normal (NORMAL) 06/12/16 03:58 Sodium 149 mmol/L (136-145) H 06/13/16 03:27 Corrected Sodium TNP 06/13/16 03:27 Potassium 3.6 mmol/L (3.5-5.1) 06/13/16 03:27 Chloride 116 mmol/L (98-107) H* 06/13/16 03:27 Carbon Dioxide 23.1 mmol/L (21-32) 06/13/16 03:27 BUN 33 mg/dL (7-18) H 06/13/16 03:27 Creatinine 1.70 mg/dL (0.70-1.30) H 06/13/16 03:27 Est GFR (MDRD) Af Amer 52 (>60) L 06/13/16 03:27 Est GFR (MDRD) Non-Af 43 (>60) L 06/13/16 03:27 Glucose 95 mg/dL (65-99) 06/13/16 03:27 Lactic Acid 0.6 mmol/L (0.4-2.0) 06/08/16 16:55 Calcium 7.9 mg/dL (8.5-10.1) L 06/13/16 03:27 Corrected Calcium 8.9 mg/dL (8.5-10.1) 06/13/16 03:27 Magnesium 2.0 mg/dL (1.7-2.9) 06/11/16 04:12 Total Bilirubin 0.30 mg/dL (0.2-1.0) 06/13/16 03:27 AST 18 Units/L (15-37) 06/13/16 03:27 ALT 20 Units/L (12-78) 06/13/16 03:27 Alkaline Phosphatase 37 Units/L (46-116) L 06/13/16 03:27 Creatine Kinase 21 Units/L (39-308) L 06/09/16 00:20 CK-MB (CK-2) < 1.0 ng/mL (0-4.0) 06/09/16 00:20 CK/CKMB % Calc 4.8 % (<4) 06/09/16 00:20 Troponin I < 0.02 ng/mL (0-1.5) 06/09/16 00:20 Total Protein 5.2 g/dL (6.4-8.2) L 06/13/16 03:27 Albumin 2.8 g/dL (3.4-5.0) L 06/13/16 03:27 Globulin 2.4 g/dL (2.5-4.5) L 06/13/16 03:27 Albumin/Globulin Ratio 1.2 Ratio (1.1-2.1) 06/13/16 03:27 Specimen Type Clean catch urine 06/08/16 19:33 Urine Color Yellow (YELLOW) 06/08/16 19:33 Urine Appearance Clear (CLEAR) 06/08/16 19:33 Urine pH 5.0 (5.0 - 8.0) 06/08/16 19:33 Ur Specific [place] 1.015 (1.000-1.030) 06/08/16 19:33 Urine Protein 2+ (NEGATIVE) 06/08/16 19:33 Urine Glucose (UA) Negative (NEGATIVE) 06/08/16 19:33 Urine Ketones Negative (NEGATIVE) 06/08/16 19:33 Urine Occult Blood 2+ (NEGATIVE) 06/08/16 19:33 Urine Nitrite Negative (NEGATIVE) 06/08/16 19:33 Urine Bilirubin Negative (NEGATIVE) 06/08/16 19:33 Urine Urobilinogen Normal (NORMAL) 06/08/16 19:33 Ur Leukocyte Esterase Negative (NEGATIVE) 06/08/16 19:33 Urine RBC 0 /HPF (NEGATIVE) 06/08/16 19:33 Urine WBC 0-3 /HPF (NEGATIVE) 06/08/16 19:33 Ur Squamous Epith Cells Rare /HPF (NEGATIVE) 06/08/16 19:33 Urine Bacteria Trace /HPF (NEGATIVE) 06/08/16 19:33 Ur Culture Indicated? No/not indicated 06/08/16 19:33 Mycoplasma pneumon IgG Negative (NEGATIVE) 06/09/16 04:45 - Plan (1) Bronchopneumonia Status: Acute Plan: CONTINUE FORTAZ, LEVAQUIN, NEB TREATMENTS, ROBITUSSIN, TUSSIONEX, MONITOR LABS AND CHEST XRAY. (2) Hypokalemia Status: Acute Plan: CONTINUE POTASSIUM PROTOCOL, MONITOR LABS. (3) Hypoalbuminemia Status: Acute Plan: CONTINUE ALBUMIN IV DAILY, MONITOR LABS. (4) Constipation by delayed colonic transit Status: Acute Plan: START MILK OF MAGNESIA, MIRALAX, AND COLACE, MONITOR. (5) CAD (coronary artery disease) Status: Chronic Qualifiers: Coronary Disease-Associated Artery/Lesion type: [place] artery [place] vs. transplanted heart: [place] heart Associated angina: without angina Qualified Code(s): I25.10 - Atherosclerotic heart disease of [place] coronary artery without angina pectoris (6) Essential hypertension Status: Chronic (7) Hypertension Status: Chronic Qualifiers: Hypertension type: essential hypertension Qualified Code(s): I10 - Essential (primary) hypertension (8) GERD (gastroesophageal reflux disease) Status: Chronic Qualifiers: Esophagitis presence: esophagitis presence not specified Qualified Code(s) : K21.9 - Gastro-esophageal reflux disease without esophagitis (9) History of cardiac arrhythmia Status: Chronic (10) Hx of transient ischemic attack (TIA) Status: Chronic (11) Stented coronary artery Status: Chronic (12) Anxiety Status: Chronic (13) Hypomagnesemia Status: Resolved (14) Hypovolemic shock Status: Resolved
[2016-06-13] MEDS: MIRALAX POWDER (1 DOSE 17GM) PO SCH (15:05)
[2016-06-13] MEDS: COLACE CAP 100 MG PO SCH (20:51)
[2016-06-13] MEDS ORDERED: ZyrTEC TAB 10 MG PO SCH (21:00)
[2016-06-14] MEDS: DUONEB 0.5 MG/3 MG NEB SCH ×4 (00:22→12:05)
[2016-06-14] MEDS: NS 1000 ML 1,000 ML IV SCH (03:31)
[2016-06-14 05:21] LABS: ALANINE AMINOTRANSFERASE 21 Units/L (12-78); ALBUMIN 2.8 g/dL (3.4-5.0); ALKALINE PHOSPHATASE 40 Units/L (46-116); ASPARTATE AMINO TRANSFERASE 21 Units/L (15-37); BLOOD UREA NITROGEN 30 mg/dL (7-18); CALCIUM 7.9 mg/dL (8.5-10.1); CARBON DIOXIDE 21.4 mmol/L (21-32); CHLORIDE 112 mmol/L (98-107); COR CA(FOR HYPOALB) 8.9 mg/dL (8.5-10.1); CREATININE 1.32 mg/dL (0.70-1.30); GLUCOSE 95 mg/dL (65-99); SODIUM 145 mmol/L (136-145); TOTAL PROTEIN 5.4 g/dL (6.4-8.2); eGFR BLACK RACES > 60 (>60); eGFR NON BLACK RACES 57 (>60)
[2016-06-14 05:25] LABS: BASOPHILS % (AUTO) 0.3 % (0.2-1.0); EOSINOPHILS % (AUTO) 0.4 % (0.9-2.9); HEMATOCRIT 30.4 % (42.0-54.0); HEMOGLOBIN 10.2 g/dL (13.5-18.0); LYMPHOCYTES # (AUTO) 1.1 X10^3/uL (1.3-2.9); MEAN CORPUSCULAR HEMOGLOBIN 29.4 pg (27.0-34.0); MEAN CORPUSCULAR HGB CONC 33.5 g/dL (33.0-35.0); MEAN CORPUSCULAR VOLUME 87.5 fL (80.0-100.0); MONOCYTES # (AUTO) 0.6 x10^3/uL (0.3-0.8); NEUTROPHILS # (AUTO) 8.7 x10^3/uL (2.2-4.8); NEUTROPHILS % (AUTO) 83.3 % (42.0-75.0); PLATELET COUNT 81 X10^3/uL (150.0-450.0); RED BLOOD COUNT 3.47 X10^6/uL (4.7-6.0); RED CELL DISTRIBUTION WIDTH 14.1 % (11.6-16.5); WHITE BLOOD COUNT 10.5 X10^3/uL (3.6-10.0)
--- NOTE | 2016-06-14 07:05 | RAD ---
AP chest Indication: Followup pneumonia. Comparison: 06/13/2016 Findings: There is blunting of the left costophrenic sulcus and reticular opacities within the left lung base most consistent with a left-sided pleural effusion with associated compressive atelectasis and or developing infiltrate. The remaining lungs are clear. Heart size is unchanged. No pneumothor ax. No acute osseous abnormality. Impression: Small left-sided pleural effusion with compressive atelectasis and or developing left lo wer lobe infiltrate. Reported By:
[2016-06-14] MEDS ORDERED: PROTONIX INJ 40 MG VIAL IVP SCH (09:00)
[2016-06-14] MEDS ORDERED: ALBUMIN HUMAN 25%- 100ML 100 ML IV SCH (09:00)
[2016-06-14] MEDS ORDERED: PEPCID 20 MG IV PREMIX* 20 MG/50 ML BAG IV SCH (09:00)
[2016-06-14] MEDS ORDERED: SINGULAIR TAB 10 MG PO SCH (09:00)
[2016-06-14] MEDS: MILK OF MAGNESIA PO SCH (09:12)
[2016-06-14] MEDS: COLACE CAP 100 MG PO SCH (09:12)
[2016-06-14] MEDS: ROBITUSSIN DM PO SCH (09:12)
[2016-06-14] MEDS: MAGIC MOUTHWASH MT SCH (09:13)
[2016-06-14] MEDS: FORTAZ or TAZICEF INJ 1 GM in NS 50 ML IV + SPIKE MINIBAG* 50 ML IV SCH (09:13)
[2016-06-14] MEDS: MIRALAX POWDER (1 DOSE 17GM) PO SCH (09:13)
[2016-06-14 10:20] VITALS: BP 152/82
[2016-06-14] MEDS ORDERED: LEVAQUIN PREMIX IV 750 MG 750 MG/150 ML BAG IV SCH (19:00)
== END 2016-06-14 12:50 | disposition short-term general hospital (02) | DRG 193 ==
LOC: ICU 15:05 → MED/SURG 06-13 11:35
PROVIDERS: ADMIT Internal Medicine; ATTEND Internal Medicine
DX: J18.0 Bronchopneumonia, unspecified organism (principal); R57.1 Hypovolemic shock; E86.0 Dehydration; I95.89 Other hypotension; R94.31 Abnormal electrocardiogram [ECG] [EKG]; I25.10 Atherosclerotic heart disease of native coronary artery without angina pectoris; I10 Essential (primary) hypertension; K21.9 Gastro-esophageal reflux disease without esophagitis; F41.8 Other specified anxiety disorders; E87.6 Hypokalemia; E88.09 Other disorders of plasma-protein metabolism, not elsewhere classified; E83.42 Hypomagnesemia; Z86.73 Personal history of transient ischemic attack (TIA), and cerebral infarction without residual deficits; K59.01 Slow transit constipation
CPT/HCPCS: 36415; 71010; 71020; 80048; 80053; 81001; 82550; 82553; 83605; 83735; 84484; 85025; 86738; 87040; 93005; 94640; 94760; A4222; C9113; P9047; S0028; J0713; J1956; J2930; J7620

== ENCOUNTER 2018-01-22 11:20 | Inpatient (IN) ==
--- NOTE | 2018-01-22 11:46 | CT ---
HISTORY: Left-sided weakness Study: CT brain without contrast Comparison: 03/02/2016 Technique: Multiple axial images of the brain were obtained from the skull base to the vertex without administration of IV contrast. Findings: No acute intraparenchymal hemorrhage or mass can be identified. No extra-axial fluid collections are seen. No alteration in the attenuation of the brain parenchyma can be identified to suggest acute or subacute ischemic change. The ventricular system is symmetric and nondilated. The extracranial structures are grossly unremarkable. IMPRESSION: 1. No acute intracranial process can be identified. Reported By:
--- NOTE | 2018-01-22 12:35 | RAD ---
HISTORY: Left-sided weakness hypertension Study: PA and lateral chest Comparison: AP chest Technique: PA and lateral chest Findings: Soft tissues bony thorax are normal heart size configuration airway and vascularity are normal the lungs are clear. The pleural effusion and mild vascular congestion that was present on 06/14/2016 had resolved and has not recurred IMPRESSION: 1. No acute findings on PA and lateral chest. Reported By:
[2018-01-22 12:38] LABS: BASOPHILS # (AUTO) 0.1 X10^3/uL (0.0-0.1); BASOPHILS % (AUTO) 1.1 % (0.2-1.0); EOSINOPHILS # (AUTO) 0.1 x10^3/uL (0.0-0.2); HEMATOCRIT 44.1 % (42.0-54.0); LYMPHOCYTES % (AUTO) 15.6 % (21.0-51.0); MEAN CORPUSCULAR HGB CONC 34.1 g/dL (33.0-35.0); MEAN PLATELET VOLUME 8.1 fL (7.4-11.0); MONOCYTES # (AUTO) 0.6 x10^3/uL (0.3-0.8); MONOCYTES % (AUTO) 9.1 % (0.0-13.0); NEUTROPHILS # (AUTO) 4.9 x10^3/uL (2.2-4.8); NEUTROPHILS % (AUTO) 73.2 % (42.0-75.0); PLATELET COUNT 222 X10^3/uL (150.0-450.0); RED BLOOD COUNT 5.01 X10^6/uL (4.7-6.0); RED CELL DISTRIBUTION WIDTH 13.3 % (11.6-16.5); WHITE BLOOD COUNT 6.7 X10^3/uL (3.6-10.0)
[2018-01-22 12:55] LABS: BLOOD UREA NITROGEN 15 mg/dL (7-18); CALCIUM 8.5 mg/dL (8.5-10.1); CHLORIDE 104 mmol/L (98-107); CREATININE 1.18 mg/dL (0.70-1.30); SODIUM 140 mmol/L (136-145); TROPONIN I < 0.02 ng/mL (0-1.5); eGFR NON BLACK RACES > 60 (>60)
[2018-01-22 12:58] LABS: ALANINE AMINOTRANSFERASE 19 Units/L (12-78); ALBUMIN 3.6 g/dL (3.4-5.0); ALKALINE PHOSPHATASE 64 Units/L (46-116); ASPARTATE AMINO TRANSFERASE 17 Units/L (15-37); CKMB % 0.7 % (<4); CREATINE KINASE 151 Units/L (39-308); CREATINE KINASE MB 1.1 ng/mL (0-4.0)
--- NOTE | 2018-01-22 13:09 | DR.HTN ---
HPI Time Seen Time Seen by Provider: 01/22/18 12:49 Primary Care Physician Primary Care Physician: KAIN CHRISTINE HPI Comment HPI Comment: HISTORY BELOW. Complaints Chief Complaint Doctors Comments: LEFT SIDED NUMBNESS AND LEFT HAND WEAKNESS SINCE 08:00AM TODAY. SYMPTOMS HAVE IMPROVE BUT NOT COMPLETELY. MILD HEADACHE PRERSENT. NO FEVER. NO TRAUMA. BP ELEVATED. HTN IN THE PAST BUT MEDS DISCONTINUES DUE TO HYPOTENSIVE EPISODED. GAVE PATIENT BP MED TO PATIENT FROM HER SUPPLY BEFORE COMING. Chief Complaint:: PT. STATES AROUND 0800, THE LEFT SIDE OF HIS BODY BECAME NUMB. HE STATES THE FEELING IS STARTING TO RETURN AT TIME OF TRIAGE. HE DENIES ANY PAIN. SPOUSE STATES SHE CHECKED HIS B/P AND IT WAS 182/98 WHICH IS UNUSUAL FOR HIM. LEFT HAND SUPERVISOR CRACK OFF WEAK. Reviewed Nurses Notes Reviewed: Yes Source History Provided: Patient Mode of Arrival Mode of Arrival: Ambulatory Timing Onset of Chief Complaint: 01/22/18 Severity Severity: Moderate PMH PMH Past Medical History: No Past Surgical History: Yes Surgical History: Cholecystectomy Family History History of Family Medical Conditions: Yes Family Medical History: Cancer, [place], Sudden Cardiac and Hypertension Social History Does patient currently use any type of tobacco product: No Have you used tobacco products in the last 12 months: No Type of Tobacco Use: None Does any household member use tobacco: No Alcohol Use: None Do you use any recreational Drugs:: No Lives With: Family Lives Where: Home infectious screening In the last 2 months have you had wt loss of >10#?: NO Have you had fever, night sweats or hemotysis?: No Have you traveled outside the country in the last 6 months?: No Isolation: Standard ROS Review of Systems Constitutional: No Symptoms Reported Eyes: No Symptoms Reported ENTM: No Symptoms Reported Respiratoy: No Symptoms Reported Cardiovascular: No Symptoms Reported Genitourinary: No Symptoms Reported Neurological: No Symptoms Reported Musculoskeletal: No Symptoms Reported Integumentary: No Symptoms Reported Hematologic/Lymphatic: No Symptoms Reported Endocrine: No Symptoms Reported Psychiatric: No Symptoms Reported All Other Systems: Reviewed and Negative PE Vital Signs Vitals: Temperature 97.8 F Pulse Rate [Left Brachial] 64 Pulse Rate 73 Respiratory Rate 20 Blood Pressure [Left Arm] 139/71 Blood Pressure [Right Arm] 140/71 Blood Pressure 181/89 O2 Sat by Pulse Oximetry 96 General Limitations: No Limitations Head Head Exam: Normal Inspection Eyes Eye exam: Normal Appearance, PERRL and EOMI; negative Scleral Icterus and Conjunctival Injection Pupils: Regular, Round: Bilateral and Reactive: Bilateral Sclera/Conjunctival: Normal Inspection: Bilateral ENT ENT Exam: Normal Oropharynx, Normal External Ear Exam and TM's Normal Bilaterally Neck Neck Exam: Trachea Midline Chest Chest Inspection: Symmetric Chest Wall Rise Respiratory Respiratory Exam: Accessory Muscle Use Respiratory Exam: Lower: Clear to Auscultation Cardiovascular Cardiovascular Exam: Regular Rate and Normal Rhythm Abdominal Exam Abdominal Exam: Normal Bowel Sounds and Soft Extremities Extremities Exam: Normal Inspection Back Back Exam: Normal Inspection Neurologic Neurological Exam: Alert, Oriented X3 and CN II-XII Intact; negative Motor Sensory Deficit Patient Oriented To: Person, Place and Time Speech: Fluid Speech Cranial Nerve Exam: EOM Function (II, III, IV, ): Normal, Facial Sensation (V): Normal, Facial Palsy (VII): Normal, Gag reflex (XI): Normal and Tongue Deviation: Normal Motor Strength - LUE: 5/5 Motor Strength - RUE: 5/5 Motor Strength - LLE: 5/5 Motor Strength - RLE: 5/5 Upper Motor Neuron Exam: Babinski Sign: Normal Psychiatric Psychiatric Exam: Normal Affect and Normal Mood Skin Skin Exam: Intact MDM Differential Diagnosis Differential Diagnosis: Hyertension, essential and HTN encephalopathy Differential Diagnosis Comment: CVA, TIA, SINUSITIS, LABINTHTITIS COURSE Treatment Treatment: SEE ORDERS. Consultation Consultation Comments: DISCUSS PATIENT WITH DR. JOSHUA. HE WILL ADMIT PATIENT. Education/Counseling Education/Counseling: Patient and Family Educated On: Diagnosis ROR Labs Reviewed Laboratory Results Reviewed?: Yes Result Diagrams: 01/22/18 12:29 01/22/18 12:29 Laboratory: WBC 6.7 X10^3/uL (3.6-10.0) 01/22/18 12: RBC 5.01 X10^6/uL (4.7-6.0) 01/22/18 12: Hgb 15.0 g/dL (13.5-18.0) 01/22/18 12: Hct 44.1 % (42.0-54.0) 01/22/18 12: MCV 88.0 fL (80.0-100.0) 01/22/18 12: MCH 30.0 pg (27.0-34.0) 01/22/18 12:29 MCHC 34.1 g/dL (33.0-35.0) 01/22/18 12: RDW 13.3 % (11.6-16.5) 01/22/18 12: Plt Count 222 X10^3/uL (150.0-450.0) 01/22/18 12: MPV 8.1 fL (7.4-11.0) 01/22/18 12: Neut % (Auto) 73.2 % (42.0-75.0) 01/22/18 12: Lymph % (Auto) 15.6 % (21.0-51.0) L 01/22/18 12: [place] % (Auto) 9.1 % (0.0-13.0) 01/22/18 12: Eos % (Auto) 1.0 % (0.9-2.9) 01/22/18 12: Baso % (Auto) 1.1 % (0.2-1.0) H 01/22/18 12: Neut # (Auto) 4.9 x10^3/uL (2.2-4.8) H 01/22/18 12: Lymph # (Auto) 1.0 X10^3/uL (1.3-2.9) L 01/22/18 12:29 [place] # (Auto) 0.6 x10^3/uL (0.3-0.8) 01/22/18 12: Eos # (Auto) 0.1 x10^3/uL (0.0-0.2) 01/22/18 12:29 Baso # (Auto) 0.1 X10^3/uL (0.0-0.1) 01/22/18 12: Absolute Nucleated RBC 0.0 /100WBC 01/22/18 12: INR Target Range - 01/22/18 12: INR 0.97 (0.8-1.3) 01/22/18 12: APTT 30.3 SECONDS (22.9-36.5) 01/22/18 12: PTT Comment - 01/22/18 12: Sodium 140 mmol/L (136-145) 01/22/18 12: Corrected Sodium TNP 01/22/18 12:29 Potassium 4.9 mmol/L (3.5-5.1) 01/22/18 12:29 Chloride 104 mmol/L (98-107) 01/22/18 12:29 Carbon Dioxide 27.0 mmol/L (21-32) 01/22/18 12:29 BUN 15 mg/dL (7-18) 01/22/18 12:29 Creatinine 1.18 mg/dL (0.70-1.30) 01/22/18 12:29 Est GFR (MDRD) Af Amer > 60 (>60) 01/22/18 12:29 Est GFR (MDRD) Non-Af > 60 (>60) 01/22/18 12:29 Glucose 98 mg/dL (65-99) 01/22/18 12:29 Calcium 8.5 mg/dL (8.5-10.1) 01/22/18 12:29 Corrected Calcium TNP 01/22/18 12:29 Total Bilirubin 0.30 mg/dL (0.2-1.0) 01/22/18 12:29 AST 17 Units/L (15-37) 01/22/18 12:29 ALT 19 Units/L (12-78) 01/22/18 12:29 Alkaline Phosphatase 64 Units/L (46-116) 01/22/18 12:29 Creatine Kinase 151 Units/L (39-308) 01/22/18 12:29 CK-MB (CK-2) 1.1 ng/mL (0-4.0) 01/22/18 12:29 CK/CKMB % Calc 0.7 % (<4) 01/22/18 12:29 Troponin I < 0.02 ng/mL (0-1.5) 01/22/18 12:29 Total Protein 7.0 g/dL (6.4-8.2) 01/22/18 12:29 Albumin 3.6 g/dL (3.4-5.0) 01/22/18 12:29 Globulin 3.4 g/dL (2.5-4.5) 01/22/18 12:29 Albumin/Globulin Ratio 1.1 Ratio (1.1-2.1) 01/22/18 12:29 XRAY XRAY Interpreted by: Radiologist XRAY Findings: REPORT DISCUSS WITH PATIENT AMD . EKG Rate: 70 [place]: Normal Rhythm: NSR Block: LBBB and RBBB ST: Nonsp Diagnosis Discharge Problem: TIA (transient ischemic attack) Hypertension Qualifiers: Hypertension type: essential hypertension Qualified Code(s): I10 - Essential (primary) hypertension
[2018-01-22] MEDS ORDERED: CATAPRES TAB 0.2 MG PO ONE (13:53)
[2018-01-22] MEDS ORDERED: CATAPRES TAB 0.2 MG ONE (13:53)
[2018-01-22] MEDS ORDERED: PLAVIX PO ONE (14:36)
[2018-01-22] MEDS ORDERED: ASPIRIN PO ONE (14:38)
[2018-01-22] MEDS ORDERED: ECOTRIN TAB 325 MG PO ONE (14:42)
[2018-01-22] MEDS ORDERED: PLAVIX ONE (14:42)
[2018-01-22] MEDS ORDERED: ASPIRIN 81 MG CHEWTAB PO SCH (15:00)
[2018-01-22 15:23] VITALS: BMI 27.9
[2018-01-22] MEDS ORDERED: FLUVIRIN IM ONE (15:23)
[2018-01-22 18:46] LABS: BILIRUBIN,URINE NEGATIVE (NEGATIVE); BLOOD/HEMOGLOBIN,URINE NEGATIVE (NEGATIVE); GLUCOSE, URINE NEGATIVE (NEGATIVE); KETONES,URINE NEGATIVE (NEGATIVE); LEUKOCYTE ESTERASE ,URINE 1+ (NEGATIVE); NITRITES,URINE NEGATIVE (NEGATIVE); PROTEIN,URINE NEGATIVE (NEGATIVE); UROBILINOGEN,URINE NORMAL (NORMAL)
[2018-01-22 18:56] LABS: APPEARANCE,URINE CLEAR (CLEAR); BACTERIA,URINE TRACE /HPF (NEGATIVE); COLOR,URINE YELLOW (YELLOW); RBC,URINE NONE SEEN /HPF (NONE SEEN); SQUAMOUS EPITHELIAL CELL,UR NEGATIVE /HPF (NEGATIVE)
[2018-01-22] MEDS ORDERED: CATAPRES TAB 0.2 MG PO SCH (21:00)
[2018-01-22 23:53] LABS: CREATINE KINASE 104 Units/L (39-308); CREATINE KINASE MB < 1.0 ng/mL (0-4.0); TROPONIN I < 0.02 ng/mL (0-1.5)
[2018-01-23] MEDS: CATAPRES TAB 0.2 MG PO SCH ×3 (00:14→20:09)
[2018-01-23 05:19] LABS: BASOPHILS # (AUTO) 0.1 X10^3/uL (0.0-0.1); BASOPHILS % (AUTO) 1.2 % (0.2-1.0); EOSINOPHILS # (AUTO) 0.1 x10^3/uL (0.0-0.2); EOSINOPHILS % (AUTO) 2.4 % (0.9-2.9); HEMATOCRIT 40.8 % (42.0-54.0); HEMOGLOBIN 13.9 g/dL (13.5-18.0); LYMPHOCYTES # (AUTO) 1.7 X10^3/uL (1.3-2.9); LYMPHOCYTES % (AUTO) 27.7 % (21.0-51.0); MEAN CORPUSCULAR HEMOGLOBIN 29.9 pg (27.0-34.0); MEAN PLATELET VOLUME 8.4 fL (7.4-11.0); MONOCYTES # (AUTO) 0.6 x10^3/uL (0.3-0.8); MONOCYTES % (AUTO) 10.6 % (0.0-13.0); NEUTROPHILS # (AUTO) 3.5 x10^3/uL (2.2-4.8); NEUTROPHILS % (AUTO) 58.1 % (42.0-75.0); PLATELET COUNT 207 X10^3/uL (150.0-450.0); RED BLOOD COUNT 4.64 X10^6/uL (4.7-6.0); RED CELL DISTRIBUTION WIDTH 13.4 % (11.6-16.5)
[2018-01-23 05:30] LABS: ALANINE AMINOTRANSFERASE 16 Units/L (12-78); ALBUMIN 3.1 g/dL (3.4-5.0); ALKALINE PHOSPHATASE 54 Units/L (46-116); ASPARTATE AMINO TRANSFERASE 13 Units/L (15-37); BLOOD UREA NITROGEN 16 mg/dL (7-18); CALCIUM 8.2 mg/dL (8.5-10.1); CARBON DIOXIDE 26.4 mmol/L (21-32); CHLORIDE 105 mmol/L (98-107); COR CA(FOR HYPOALB) 8.9 mg/dL (8.5-10.1); CREATININE 1.21 mg/dL (0.70-1.30); SODIUM 140 mmol/L (136-145); TOTAL PROTEIN 6.1 g/dL (6.4-8.2); eGFR NON BLACK RACES > 60 (>60)
[2018-01-23 05:35] LABS: CKMB % 1.2 % (<4); CREATINE KINASE 94 Units/L (39-308); CREATINE KINASE MB 1.1 ng/mL (0-4.0); TROPONIN I < 0.02 ng/mL (0-1.5)
[2018-01-23] MEDS ORDERED: ASPIRIN PO SCH (09:00)
[2018-01-23] MEDS: ASPIRIN 81 MG CHEWTAB PO SCH (09:41)
[2018-01-23] MEDS: PLAVIX PO SCH (09:42)
[2018-01-23 09:52] LABS: CKMB % 1.1 % (<4); CREATINE KINASE 90 Units/L (39-308); CREATINE KINASE MB < 1.0 ng/mL (0-4.0); TROPONIN I < 0.02 ng/mL (0-1.5)
[2018-01-23] MEDS ORDERED: ASPIRIN PO ONE (14:29)
--- NOTE | 2018-01-23 16:12 | MRI ---
STUDY: MRI OF THE BRAIN WITHOUT GADOLINIUM HISTORY: Weakness left arm and leg. Technique: Multiplanar multi-sequence MRI of the brain was obtained utilizing standard departmental protocol. Sagittal and axial T1, axial T2, FLAIR, diffusion (DWI/ADC), GRE, and coronal T2 images through the brain were performed. Comparison: Head CT from January 22, 2018. Findings: The sulci, cisterns and ventricles are age appropriate. There are confluent and scattered foci of T2 prolongation in the periventricular and subcortical white matter of both hemispheres. This is a nonspecific finding which likely represents microangiopathic change in a patient of this age. There is a focus of decreased diffusion in the posterior aspect of the right putamen. This extends superiorly into the right periventricular [place] radiata. There is no evidence of acute hemorrhage, mass, mass effect, or midline shift. There are no abnormal intra-axial or extra-axial fluid collections. The major intracranial vascular flow voids appear intact. The left vertebral artery is are dominent. IMPRESSION: 1. 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 2. Nonspecific white matter change. Reported By:
--- NOTE | 2018-01-23 16:13 | MRI ---
MRA neck without contrast Indication: Left-sided weakness and headache Comparison: MR brain from the same day and CT head from the previous day Technique: Multiplanar multi sequence imaging through the neck without contrast. 3D [id number] and 2D [id number] sequences provided. Findings: 2D [id number] shows normal direction of flow in the vertebral and carotid arteries. The vertebral arteries are normal and symmetric. Common carotid arteries appear normal and symmetric. Carotid bulbs, internal carotid arteries and external carotid arteries appear normal. Impression: No stenosis, occlusion or large aneurysm seen in the arteries of the neck. Reported By:
[2018-01-23] MEDS: NORVASC TAB 5 MG PO SCH (17:46)
--- NOTE | 2018-01-23 17:57 | DR.H&P ---
H&P - History & Physical for Day of: H&P Date: 01/22/18 - Chief Complaint Chief Complaint: LEFT SIDE WEAKNESS - History of Present Illness History of Present Illness: 72 WM ER ADMISSION AFTER PRESENTING WITH CO ACUTE LEFT SIDE WEAKNESS. PT WAS ACCOMPANIED TO ER BY SPOUSE, DENIES ANY CP, SOB OR SPEECH IMPAIRMENT. PT HAS HYPERTENSIVE IN ER, CONTINUED LEFT UPPER AND LOWER EXTREMITIY WEAKNESS. PT DENIES HX HTN. PT HAS PMH OF CAD WITH STENT X1 2004 AT [facility]. PT STATES HE HAD SIMILAR EPISODE ONE YEAR AGO AND HAD NORMAL CARDIAC WORK UP. PT STATES WEAKNESS STARTED AFTER ARRIVING AT WORK TO OPEN SHOP, ONLY ON LEFT SIDE, DENIES FALL OR INJURY - Past Medical History Past Medical History: Arthritis, Coronary Artery Disease - Past Surgical History Surgical History: Angioplasty/Stents, Cholecystectomy - Family History Family Medical History: Cancer, [place], Sudden Cardiac , Hypertension - Social History Does patient currently use any type of tobacco product: No Have you used tobacco products in the last 12 months: No Type of Tobacco Use: None Does any household member use tobacco: No Alcohol Use: None Drug Use: None - Medications Home Medications: No Known Drug Allergies Allergy (Verified 01/22/18 11:46) CONTINUE taking the following medications nebivolol [Bystolic] 5 mg PO DAILY PRN 01/22/18 [History] - Review of Systems Constitutional: Weakness Eyes: No Symptoms Reported ENT: No Symptoms Reported Respiratory: No Symptoms Reported Cardiovascular: No Symptoms Reported Gastrointestinal: No Symptoms Reported Genitourinary: No Symptoms Reported Musculoskeletal: denies: Arm Pain, Leg Pain Skin: No Symptoms Reported Neurological: Weakness (LEFT SIDE WEAKNESS) - Physical Exam Vital Signs: Temperature 97.9 F Pulse Rate [Left Brachial] 59 Pulse Rate 73 Respiratory Rate 20 Blood Pressure [Left Arm] 161/76 Blood Pressure [Right Arm] 140/71 Blood Pressure 181/89 O2 Sat by Pulse Oximetry 97 Oriented: Normal Eyes: Normal Ear: Normal Nose: Normal Throat: Normal Respiratory: Clear Throughout Cardiovascular: Normal. negative: Edema : Normal Auscultation: Bowel Sounds: Normal Palpation: Normal Tenderness: Normal Skin: Normal Musculoskeletal: Left, Arm, Leg, Motor Deficit, Sensory Deficit Psychiatric: Normal Mood Description: Calm Speech Pattern: Clear, Appropriate. negative: Slurred - Assessment/Plan (1) Acute left-sided weakness Status: Acute Plan: ADMIT, CT HEAD ON ADMISSION IN ER WNL. ASPIRIN, PLAVIX THERAPY, STATIN. SERIAL CE AND EKG. FLP, CAROTID ARTERY CTA. AM MRI BRAIN, BP AND CARDIAC MONITORING (2) Hypertension Qualifiers: Hypertension type: essential hypertension Qualified Code(s): I10 - Essential (primary) hypertension Status: Acute (3) Hx of transient ischemic attack (TIA) Status: Chronic (4) GERD (gastroesophageal reflux disease) Qualifiers: Esophagitis presence: esophagitis presence not specified Qualified Code(s): K21.9 - Gastro-esophageal reflux disease without esophagitis Status: Chronic (5) CAD (coronary artery disease) Qualifiers: Coronary Disease-Associated Artery/Lesion type: [place] artery [place] vs. transplanted heart: [place] heart Associated angina: without angina Qualified Code(s): I25.10 - Atherosclerotic heart disease of [place] coronary artery without angina pectoris Status: Chronic - Allergies Allergies/Adverse Reactions: Allergies Allergy/AdvReac Type Severity Reaction Status Date / Time No Known Drug Allergies Allergy Verified 01/22/18 11:46
--- NOTE | 2018-01-23 18:01 | PCM.PROG ---
Progress Note - Progress Note for Day of Date of Exam: 01/23/18 - Subjective Subjective: 72 WM ER ADMISSION R/O ACUTE CVA AFTER NEW ONSET LEFT SIDE WEAKNESS, CT HEAD W/O ACUTE FINDINGS. PT HAD SERIAL CE, STABLE. PT TO HAVE MRI THIS AM, CAROTID ARTERY CTA. PT CURRENTLY CALM WITHTOUT CO PAIN, DODD, DIZZINESS. PT CO CONTINUED EMMETT WEAKNESS, LLE IMPROVING. PT STARTED ON STATIN, AM FLP ORDERED. NORVASC FOR BP CONTROL. - Past Medical Family Social History Past Med/Fam/Surg Hx: No changes since H&P Allergies: Allergies No Known Drug Allergies Allergy (Verified 01/22/18 11:46) - Review of Systems ROS: No change since H&P - Vital Signs and I&O's Vital Signs: Temperature 97.9 F Pulse Rate [Left Brachial] 59 Pulse Rate 73 Respiratory Rate 20 Blood Pressure [Left Arm] 161/76 Blood Pressure [Right Arm] 140/71 Blood Pressure 181/89 O2 Sat by Pulse Oximetry 97 Intake and Output: Intake & Output 01/21/18 01/22/18 01/23/18 01/24/18 11:59 11:59 11:59 11:59 Intake Total 240 / 240 450 / 450 Balance 240 / 240 450 / 450 - Physical Exam Oriented: Normal Eyes: Normal Ear: Normal Nose: Normal Throat: Normal Cardiovascular: Normal. negative: Edema : Normal Auscultation: Bowel Sounds: Normal Tenderness: Normal Skin: Normal Musculoskeletal: Left, Arm, Leg, Motor Deficit, Sensory Deficit Psychiatric: Normal Mood Description: Calm Speech Pattern: Clear, Appropriate. negative: Slurred - Laboratory and Diagnostics Result Diagrams: 01/23/18 04:34 01/23/18 04:34 Labs: Laboratory WBC 6.0 X10^3/uL (3.6-10.0) 01/23/18 04:34 RBC 4.64 X10^6/uL (4.7-6.0) L 01/23/18 04:34 Hgb 13.9 g/dL (13.5-18.0) 01/23/18 04:34 Hct 40.8 % (42.0-54.0) L 01/23/18 04:34 MCV 88.0 fL (80.0-100.0) 01/23/18 04:34 MCH 29.9 pg (27.0-34.0) 01/23/18 04:34 MCHC 34.0 g/dL (33.0-35.0) 01/23/18 04:34 RDW 13.4 % (11.6-16.5) 01/23/18 04:34 Plt Count 207 X10^3/uL (150.0-450.0) 01/23/18 04:34 MPV 8.4 fL (7.4-11.0) 01/23/18 04:34 Neut % (Auto) 58.1 % (42.0-75.0) 01/23/18 04:34 Lymph % (Auto) 27.7 % (21.0-51.0) 01/23/18 04:34 [place] % (Auto) 10.6 % (0.0-13.0) 01/23/18 04:34 Eos % (Auto) 2.4 % (0.9-2.9) 01/23/18 04:34 Baso % (Auto) 1.2 % (0.2-1.0) H 01/23/18 04:34 Neut # (Auto) 3.5 x10^3/uL (2.2-4.8) 01/23/18 04:34 Lymph # (Auto) 1.7 X10^3/uL (1.3-2.9) 01/23/18 04:34 [place] # (Auto) 0.6 x10^3/uL (0.3-0.8) 01/23/18 04:34 Eos # (Auto) 0.1 x10^3/uL (0.0-0.2) 01/23/18 04:34 Baso # (Auto) 0.1 X10^3/uL (0.0-0.1) 01/23/18 04:34 Absolute Nucleated RBC 0.0 /100WBC 01/23/18 04:34 ESR 7 MM/HOUR (0-15) 01/23/18 04:34 INR Target Range - 01/22/18 12:29 INR 0.97 (0.8-1.3) 01/22/18 12:29 APTT 30.3 SECONDS (22.9-36.5) 01/22/18 12:29 PTT Comment - 01/22/18 12:29 D-Dimer < 100 ng/mL (0-400) 01/23/18 09:21 Sodium 140 mmol/L (136-145) 01/23/18 04:34 Corrected Sodium TNP 01/23/18 04:34 Potassium 4.2 mmol/L (3.5-5.1) 01/23/18 04:34 Chloride 105 mmol/L (98-107) 01/23/18 04:34 Carbon Dioxide 26.4 mmol/L (21-32) 01/23/18 04:34 BUN 16 mg/dL (7-18) 01/23/18 04:34 Creatinine 1.21 mg/dL (0.70-1.30) 01/23/18 04:34 Est GFR (MDRD) Af Amer > 60 (>60) 01/23/18 04:34 Est GFR (MDRD) Non-Af > 60 (>60) 01/23/18 04:34 Glucose 98 mg/dL (65-99) 01/23/18 04:34 Calcium 8.2 mg/dL (8.5-10.1) L 01/23/18 04:34 Corrected Calcium 8.9 mg/dL (8.5-10.1) 01/23/18 04:34 Total Bilirubin 0.30 mg/dL (0.2-1.0) 01/23/18 04:34 AST 13 Units/L (15-37) L 01/23/18 04:34 ALT 16 Units/L (12-78) 01/23/18 04:34 Alkaline Phosphatase 54 Units/L (46-116) 01/23/18 04:34 Creatine Kinase 90 Units/L (39-308) 01/23/18 09:21 CK-MB (CK-2) < 1.0 ng/mL (0-4.0) 01/23/18 09:21 CK/CKMB % Calc 1.1 % (<4) 01/23/18 09:21 Troponin I < 0.02 ng/mL (0-1.5) 01/23/18 09:21 C-Reactive Protein 1.30 mg/L (0-3.0) 01/23/18 04:34 Total Protein 6.1 g/dL (6.4-8.2) L 01/23/18 04:34 Albumin 3.1 g/dL (3.4-5.0) L 01/23/18 04:34 Globulin 3.0 g/dL (2.5-4.5) 01/23/18 04:34 Albumin/Globulin Ratio 1.0 Ratio (1.1-2.1) L 01/23/18 04:34 Specimen Type Clean catch urine 01/22/18 18:00 Urine Color Yellow (YELLOW) 01/22/18 18:00 Urine Appearance Clear (CLEAR) 01/22/18 18:00 Urine pH 6.0 (5.0 - 8.0) 01/22/18 18:00 Ur Specific [place] 1.010 (1.000-1.030) 01/22/18 18:00 Urine Protein Negative (NEGATIVE) 01/22/18 18:00 Urine Glucose (UA) Negative (NEGATIVE) 01/22/18 18:00 Urine Ketones Negative (NEGATIVE) 01/22/18 18:00 Urine Occult Blood Negative (NEGATIVE) 01/22/18 18:00 Urine Nitrite Negative (NEGATIVE) 01/22/18 18:00 Urine Bilirubin Negative (NEGATIVE) 01/22/18 18:00 Urine Urobilinogen Normal (NORMAL) 01/22/18 18:00 Ur Leukocyte Esterase 1+ (NEGATIVE) 01/22/18 18:00 Urine RBC None seen /HPF (NONE SEEN) 01/22/18 18:00 Urine WBC 0-2 /HPF (NONE SEEN) 01/22/18 18:00 Ur Squamous Epith Cells Negative /HPF (NEGATIVE) 01/22/18 18:00 Urine Bacteria Trace /HPF (NEGATIVE) 01/22/18 18:00 Ur Culture Indicated? No/not indicated 01/22/18 18:00 - Plan (1) Acute left-sided weakness Status: Acute Plan: CT HEAD ON ADMISSION IN ER WNL. ASPIRIN, PLAVIX THERAPY, STATIN. SERIAL CE AND EKG. FLP, CAROTID ARTERY CTA. MRI BRAIN, BP AND CARDIAC MONITORING (2) Hypertension Status: Acute Qualifiers: Hypertension type: essential hypertension Qualified Code(s): I10 - Essential (primary) hypertension (3) Hx of transient ischemic attack (TIA) Status: Chronic (4) GERD (gastroesophageal reflux disease) Status: Chronic Qualifiers: Esophagitis presence: esophagitis presence not specified Qualified Code(s): K21.9 - Gastro-esophageal reflux disease without esophagitis (5) CAD (coronary artery disease) Status: Chronic Qualifiers: Coronary Disease-Associated Artery/Lesion type: [place] artery [place] vs. transplanted heart: [place] heart Associated angina: without angina Qualified Code(s): I25.10 - Atherosclerotic heart disease of [place] coronary artery without angina pectoris
[2018-01-23] MEDS: CRESTOR TAB 10 MG PO SCH (20:09)
[2018-01-24 05:22] LABS: BASOPHILS # (AUTO) 0.1 X10^3/uL (0.0-0.1); BASOPHILS % (AUTO) 1.1 % (0.2-1.0); EOSINOPHILS # (AUTO) 0.1 x10^3/uL (0.0-0.2); HEMATOCRIT 40.9 % (42.0-54.0); HEMOGLOBIN 13.8 g/dL (13.5-18.0); LYMPHOCYTES # (AUTO) 1.5 X10^3/uL (1.3-2.9); LYMPHOCYTES % (AUTO) 23.6 % (21.0-51.0); MEAN CORPUSCULAR HGB CONC 33.7 g/dL (33.0-35.0); MEAN CORPUSCULAR VOLUME 88.9 fL (80.0-100.0); MEAN PLATELET VOLUME 8.6 fL (7.4-11.0); MONOCYTES # (AUTO) 0.6 x10^3/uL (0.3-0.8); MONOCYTES % (AUTO) 9.3 % (0.0-13.0); PLATELET COUNT 213 X10^3/uL (150.0-450.0); RED CELL DISTRIBUTION WIDTH 13.7 % (11.6-16.5); WHITE BLOOD COUNT 6.2 X10^3/uL (3.6-10.0)
[2018-01-24 05:32] LABS: ALANINE AMINOTRANSFERASE 18 Units/L (12-78); ALBUMIN 3.2 g/dL (3.4-5.0); ALKALINE PHOSPHATASE 54 Units/L (46-116); ASPARTATE AMINO TRANSFERASE 15 Units/L (15-37); BLOOD UREA NITROGEN 22 mg/dL (7-18); CALCIUM 8.2 mg/dL (8.5-10.1); CARBON DIOXIDE 26.7 mmol/L (21-32); CHLORIDE 105 mmol/L (98-107); CHOL/HDL RATIO 3.8 (0.0-5.0); CHOLESTEROL 180 mg/dL (0-200); COR CA(FOR HYPOALB) 8.8 mg/dL (8.5-10.1); CREATININE 1.17 mg/dL (0.70-1.30); HDL CHOLESTEROL 48 mg/dL (40-60); SODIUM 139 mmol/L (136-145); TOTAL PROTEIN 6.3 g/dL (6.4-8.2); TRIGLYCERIDES 99 mg/dL (0-150); eGFR NON BLACK RACES > 60 (>60)
[2018-01-24] MEDS: NORVASC TAB 5 MG PO SCH (09:14)
[2018-01-24] MEDS: PLAVIX PO SCH (09:14)
[2018-01-24] MEDS: CATAPRES TAB 0.2 MG PO SCH ×2 (09:14→20:40)
[2018-01-24] MEDS: ASPIRIN 81 MG CHEWTAB PO SCH (09:14)
--- NOTE | 2018-01-24 13:39 | PCM.PROG ---
Progress Note - Progress Note for Day of Date of Exam: 01/24/18 - Subjective Subjective: 72 WM ER ADMISSION R/O ACUTE CVA AFTER NEW ONSET LEFT SIDE WEAKNESS, CT HEAD W/O ACUTE FINDINGS. PT HAD SERIAL CE, STABLE. PT HAD MRI WITH ACUTE CVA. CAROTID ARTERY CTA WITHOUT HIGH GRADE STENOSIS. PT CURRENTLY CALM WITHTOUT CO PAIN, DODD, DIZZINESS. PT CO CONTINUED EMMETT WEAKNESS, LLE IMPROVING MILDLY.PT ON STATIN, AM FLP ORDERED. NORVASC FOR BP CONTROL WITH STABLE BP READINGS. DISCUSSED DISEASE MANAGEMENT AND NEED FOR PHYSICAL THERAPY. - Past Medical Family Social History Past Med/Fam/Surg Hx: No changes since H&P Allergies: Allergies No Known Drug Allergies Allergy (Verified 01/22/18 11:46) - Review of Systems ROS: No change since H&P - Vital Signs and I&O's Vital Signs: Temperature 97.6 F Pulse Rate [Left Brachial] 52 Pulse Rate 73 Respiratory Rate 20 Blood Pressure [Left Arm] 110/59 Blood Pressure [Right Arm] 97/53 Blood Pressure 181/89 O2 Sat by Pulse Oximetry 98 Intake and Output: Intake & Output 01/22/18 01/23/18 01/24/18 01/25/18 11:59 11:59 11:59 11:59 Intake Total 240 / 240 830 / 830 Balance 240 / 240 830 / 830 - Physical Exam Oriented: Normal Eyes: Normal Ear: Normal Nose: Normal Throat: Normal Respiratory: Normal Cardiovascular: Normal. negative: Edema : Normal Auscultation: Bowel Sounds: Normal Tenderness: Normal Skin: Normal Musculoskeletal: Left, Arm, Leg, Motor Deficit, Sensory Deficit Psychiatric: Normal Mood Description: Calm Speech Pattern: Clear, Appropriate - Laboratory and Diagnostics Result Diagrams: 01/24/18 04:22 01/24/18 04:22 Labs: Laboratory WBC 6.2 X10^3/uL (3.6-10.0) 01/24/18 04:22 RBC 4.60 X10^6/uL (4.7-6.0) L 01/24/18 04:22 Hgb 13.8 g/dL (13.5-18.0) 01/24/18 04:22 Hct 40.9 % (42.0-54.0) L 01/24/18 04:22 MCV 88.9 fL (80.0-100.0) 01/24/18 04:22 MCH 30.0 pg (27.0-34.0) 01/24/18 04:22 MCHC 33.7 g/dL (33.0-35.0) 01/24/18 04:22 RDW 13.7 % (11.6-16.5) 01/24/18 04:22 Plt Count 213 X10^3/uL (150.0-450.0) 01/24/18 04:22 MPV 8.6 fL (7.4-11.0) 01/24/18 04:22 Neut % (Auto) 64.0 % (42.0-75.0) 01/24/18 04:22 Lymph % (Auto) 23.6 % (21.0-51.0) 01/24/18 04:22 [place] % (Auto) 9.3 % (0.0-13.0) 01/24/18 04:22 Eos % (Auto) 2.0 % (0.9-2.9) 01/24/18 04:22 Baso % (Auto) 1.1 % (0.2-1.0) H 01/24/18 04:22 Neut # (Auto) 4.0 x10^3/uL (2.2-4.8) 01/24/18 04:22 Lymph # (Auto) 1.5 X10^3/uL (1.3-2.9) 01/24/18 04:22 [place] # (Auto) 0.6 x10^3/uL (0.3-0.8) 01/24/18 04:22 Eos # (Auto) 0.1 x10^3/uL (0.0-0.2) 01/24/18 04:22 Baso # (Auto) 0.1 X10^3/uL (0.0-0.1) 01/24/18 04:22 Absolute Nucleated RBC 0.0 /100WBC 01/24/18 04:22 ESR 7 MM/HOUR (0-15) 01/23/18 04:34 INR Target Range - 01/22/18 12:29 INR 0.97 (0.8-1.3) 01/22/18 12:29 APTT 30.3 SECONDS (22.9-36.5) 01/22/18 12:29 PTT Comment - 01/22/18 12:29 D-Dimer < 100 ng/mL (0-400) 01/23/18 09:21 Sodium 139 mmol/L (136-145) 01/24/18 04:22 Corrected Sodium TNP 01/24/18 04:22 Potassium 4.5 mmol/L (3.5-5.1) 01/24/18 04:22 Chloride 105 mmol/L (98-107) 01/24/18 04:22 Carbon Dioxide 26.7 mmol/L (21-32) 01/24/18 04:22 BUN 22 mg/dL (7-18) H 01/24/18 04:22 Creatinine 1.17 mg/dL (0.70-1.30) 01/24/18 04:22 Est GFR (MDRD) Af Amer > 60 (>60) 01/24/18 04:22 Est GFR (MDRD) Non-Af > 60 (>60) 01/24/18 04:22 Glucose 106 mg/dL (65-99) H 01/24/18 04:22 Calcium 8.2 mg/dL (8.5-10.1) L 01/24/18 04:22 Corrected Calcium 8.8 mg/dL (8.5-10.1) 01/24/18 04:22 Total Bilirubin 0.30 mg/dL (0.2-1.0) 01/24/18 04:22 AST 15 Units/L (15-37) 01/24/18 04:22 ALT 18 Units/L (12-78) 01/24/18 04:22 Alkaline Phosphatase 54 Units/L (46-116) 01/24/18 04:22 Creatine Kinase 90 Units/L (39-308) 01/23/18 09:21 CK-MB (CK-2) < 1.0 ng/mL (0-4.0) 01/23/18 09:21 CK/CKMB % Calc 1.1 % (<4) 01/23/18 09:21 Troponin I < 0.02 ng/mL (0-1.5) 01/23/18 09:21 C-Reactive Protein 1.30 mg/L (0-3.0) 01/23/18 04:34 Total Protein 6.3 g/dL (6.4-8.2) L 01/24/18 04:22 Albumin 3.2 g/dL (3.4-5.0) L 01/24/18 04:22 Globulin 3.1 g/dL (2.5-4.5) 01/24/18 04:22 Albumin/Globulin Ratio 1.0 Ratio (1.1-2.1) L 01/24/18 04:22 Triglycerides 99 mg/dL (0-150) 01/24/18 04:22 Cholesterol 180 mg/dL (0-200) 01/24/18 04:22 LDL Cholesterol, Calc 112 mg/dL (0-100) H 01/24/18 04:22 HDL Cholesterol 48 mg/dL (40-60) 01/24/18 04:22 Cholesterol/HDL Ratio 3.8 (0.0-5.0) 01/24/18 04:22 Specimen Type Clean catch urine 01/22/18 18:00 Urine Color Yellow (YELLOW) 01/22/18 18:00 Urine Appearance Clear (CLEAR) 01/22/18 18:00 Urine pH 6.0 (5.0 - 8.0) 01/22/18 18:00 Ur Specific [place] 1.010 (1.000-1.030) 01/22/18 18:00 Urine Protein Negative (NEGATIVE) 01/22/18 18:00 Urine Glucose (UA) Negative (NEGATIVE) 01/22/18 18:00 Urine Ketones Negative (NEGATIVE) 01/22/18 18:00 Urine Occult Blood Negative (NEGATIVE) 01/22/18 18:00 Urine Nitrite Negative (NEGATIVE) 01/22/18 18:00 Urine Bilirubin Negative (NEGATIVE) 01/22/18 18:00 Urine Urobilinogen Normal (NORMAL) 01/22/18 18:00 Ur Leukocyte Esterase 1+ (NEGATIVE) 01/22/18 18:00 Urine RBC None seen /HPF (NONE SEEN) 01/22/18 18:00 Urine WBC 0-2 /HPF (NONE SEEN) 01/22/18 18:00 Ur Squamous Epith Cells Negative /HPF (NEGATIVE) 01/22/18 18:00 Urine Bacteria Trace /HPF (NEGATIVE) 01/22/18 18:00 Ur Culture Indicated? No/not indicated 01/22/18 18:00 - Plan (1) Acute CVA (cerebrovascular accident) Status: Acute Plan: ASPIRIN, PLAVIX THERAPY, STATIN. CP AND CARDIAC MONITORING (2) Acute left-sided weakness Status: Acute Plan: CT HEAD ON ADMISSION IN ER WNL. ASPIRIN, PLAVIX THERAPY, STATIN. SERIAL CE AND EKG ON ADMISSION. FLP, CAROTID ARTERY CTA. MRI BRAIN, BP AND CARDIAC MONITORING (3) Hypertension Status: Acute Qualifiers: Hypertension type: essential hypertension Qualified Code(s): I10 - Essential (primary) hypertension (4) Hx of transient ischemic attack (TIA) Status: Chronic (5) GERD (gastroesophageal reflux disease) Status: Chronic Qualifiers: Esophagitis presence: esophagitis presence not specified Qualified Code(s): K21.9 - Gastro-esophageal reflux disease without esophagitis (6) CAD (coronary artery disease) Status: Chronic Qualifiers: Coronary Disease-Associated Artery/Lesion type: [place] artery [place] vs. transplanted heart: [place] heart Associated angina: without angina Qualified Code(s): I25.10 - Atherosclerotic heart disease of [place] coronary artery without angina pectoris
[2018-01-24] MEDS: CRESTOR TAB 10 MG PO SCH (20:40)
[2018-01-25 05:17] LABS: BASOPHILS # (AUTO) 0.1 X10^3/uL (0.0-0.1); BASOPHILS % (AUTO) 0.9 % (0.2-1.0); EOSINOPHILS # (AUTO) 0.1 x10^3/uL (0.0-0.2); HEMATOCRIT 41.5 % (42.0-54.0); HEMOGLOBIN 14.3 g/dL (13.5-18.0); LYMPHOCYTES # (AUTO) 1.5 X10^3/uL (1.3-2.9); LYMPHOCYTES % (AUTO) 26.9 % (21.0-51.0); MEAN CORPUSCULAR HEMOGLOBIN 30.4 pg (27.0-34.0); MEAN CORPUSCULAR HGB CONC 34.3 g/dL (33.0-35.0); MEAN CORPUSCULAR VOLUME 88.6 fL (80.0-100.0); MEAN PLATELET VOLUME 8.4 fL (7.4-11.0); MONOCYTES # (AUTO) 0.6 x10^3/uL (0.3-0.8); MONOCYTES % (AUTO) 10.5 % (0.0-13.0); NEUTROPHILS # (AUTO) 3.4 x10^3/uL (2.2-4.8); NEUTROPHILS % (AUTO) 59.7 % (42.0-75.0); PLATELET COUNT 216 X10^3/uL (150.0-450.0); RED BLOOD COUNT 4.69 X10^6/uL (4.7-6.0); RED CELL DISTRIBUTION WIDTH 13.3 % (11.6-16.5); WHITE BLOOD COUNT 5.7 X10^3/uL (3.6-10.0)
[2018-01-25 05:37] LABS: ALANINE AMINOTRANSFERASE 21 Units/L (12-78); ALBUMIN 3.2 g/dL (3.4-5.0); ALKALINE PHOSPHATASE 56 Units/L (46-116); ASPARTATE AMINO TRANSFERASE 16 Units/L (15-37); BLOOD UREA NITROGEN 18 mg/dL (7-18); CALCIUM 8.6 mg/dL (8.5-10.1); CARBON DIOXIDE 28.9 mmol/L (21-32); CHLORIDE 105 mmol/L (98-107); COR CA(FOR HYPOALB) 9.2 mg/dL (8.5-10.1); CREATININE 1.05 mg/dL (0.70-1.30); SODIUM 141 mmol/L (136-145); TOTAL PROTEIN 6.3 g/dL (6.4-8.2); eGFR NON BLACK RACES > 60 (>60)
[2018-01-25] MEDS: NORVASC TAB 5 MG PO SCH (09:15)
[2018-01-25] MEDS: PLAVIX PO SCH (09:15)
[2018-01-25] MEDS: ASPIRIN 81 MG CHEWTAB PO SCH (09:15)
--- NOTE | 2018-01-25 09:33 | RAD ---
History: Shortness of breath Study: Portable AP chest Comparison: January 22 Findings: The lungs are clear and the heart and mediastinum are unremarkable. There is no edema or effusion. No bony abnormality is demonstrated. Impression: No evidence for acute or active cardiopulmonary disease Reported By:
[2018-01-25] MEDS: CATAPRES TAB 0.2 MG PO SCH (10:22)
[2018-01-25] MEDS ORDERED: CATAPRES TAB 0.2 MG PO PRN (16:00)
--- NOTE | 2018-01-25 17:46 | PCM.PROG ---
Progress Note - Progress Note for Day of Date of Exam: 01/25/18 - Subjective Subjective: 72 WM ER ADMISSION R/O ACUTE CVA AFTER NEW ONSET LEFT SIDE WEAKNESS, CT HEAD W/O ACUTE FINDINGS. PT HAD SERIAL CE, STABLE. PT HAD MRI WITH ACUTE CVA. CAROTID ARTERY CTA WITHOUT HIGH GRADE STENOSIS. PT CURRENTLY CALM WITHTOUT CO PAIN, DODD, DIZZINESS. PT CO CONTINUED LEFT UPPER AND LOWER EXTREMITY WEAKNESS, WORSENED TO LLE SINCE ADMISSION. PT ON STATIN, ASPIRIN, PLAVIS. NORVASC FOR BP CONTROL WITH STABLE BP READINGS. DISCUSSED DISEASE MANAGEMENT AND NEED FOR PHYSICAL THERAPY, PT IS AGREES. HEART RATE IN 50'S TODAY, ECHO FOR Q AM. REPEAT EKG AND CONTINUOUS TELEMETRY. - Past Medical Family Social History Past Med/Fam/Surg Hx: No changes since H&P Allergies: Allergies No Known Drug Allergies Allergy (Verified 01/22/18 11:46) - Review of Systems ROS: No change since H&P - Vital Signs and I&O's Vital Signs: Temperature 97.9 F Pulse Rate [Left Brachial] 65 Pulse Rate 73 Respiratory Rate 20 Blood Pressure [Left Arm] 135/63 Blood Pressure [Right Arm] 131/62 Blood Pressure 181/89 O2 Sat by Pulse Oximetry 98 Intake and Output: Intake & Output 01/23/18 01/24/18 01/25/18 01/26/18 11:59 11:59 11:59 11:59 Intake Total 240 / 240 830 / 830 1730 / 1730 780 / 780 Output Total 600 / 600 400 / 400 Balance 240 / 240 830 / 830 1130 / 1130 380 / 380 - Physical Exam Oriented: Normal Eyes: Normal Ear: Normal Nose: Normal Throat: Normal Respiratory: Normal Cardiovascular: Bradycardia (RATE 56). negative: Edema : Normal Auscultation: Bowel Sounds: Normal Tenderness: Normal Skin: Normal Musculoskeletal: Left, Arm, Leg, Motor Deficit, Sensory Deficit Psychiatric: Normal Mood Description: Calm Speech Pattern: Clear, Appropriate - Laboratory and Diagnostics Result Diagrams: 01/25/18 04:24 01/25/18 04:24 Labs: Laboratory WBC 5.7 X10^3/uL (3.6-10.0) 01/25/18 04:24 RBC 4.69 X10^6/uL (4.7-6.0) L 01/25/18 04:24 Hgb 14.3 g/dL (13.5-18.0) 01/25/18 04:24 Hct 41.5 % (42.0-54.0) L 01/25/18 04:24 MCV 88.6 fL (80.0-100.0) 01/25/18 04:24 MCH 30.4 pg (27.0-34.0) 01/25/18 04:24 MCHC 34.3 g/dL (33.0-35.0) 01/25/18 04:24 RDW 13.3 % (11.6-16.5) 01/25/18 04:24 Plt Count 216 X10^3/uL (150.0-450.0) 01/25/18 04:24 MPV 8.4 fL (7.4-11.0) 01/25/18 04:24 Neut % (Auto) 59.7 % (42.0-75.0) 01/25/18 04:24 Lymph % (Auto) 26.9 % (21.0-51.0) 01/25/18 04:24 [place] % (Auto) 10.5 % (0.0-13.0) 01/25/18 04:24 Eos % (Auto) 2.0 % (0.9-2.9) 01/25/18 04:24 Baso % (Auto) 0.9 % (0.2-1.0) 01/25/18 04:24 Neut # (Auto) 3.4 x10^3/uL (2.2-4.8) 01/25/18 04:24 Lymph # (Auto) 1.5 X10^3/uL (1.3-2.9) 01/25/18 04:24 [place] # (Auto) 0.6 x10^3/uL (0.3-0.8) 01/25/18 04:24 Eos # (Auto) 0.1 x10^3/uL (0.0-0.2) 01/25/18 04:24 Baso # (Auto) 0.1 X10^3/uL (0.0-0.1) 01/25/18 04:24 Absolute Nucleated RBC 0.1 /100WBC 01/25/18 04:24 ESR 7 MM/HOUR (0-15) 01/23/18 04:34 INR Target Range - 01/22/18 12:29 INR 0.97 (0.8-1.3) 01/22/18 12:29 APTT 30.3 SECONDS (22.9-36.5) 01/22/18 12:29 PTT Comment - 01/22/18 12:29 D-Dimer < 100 ng/mL (0-400) 01/23/18 09:21 Sodium 141 mmol/L (136-145) 01/25/18 04:24 Corrected Sodium TNP 01/25/18 04:24 Potassium 4.0 mmol/L (3.5-5.1) 01/25/18 04:24 Chloride 105 mmol/L (98-107) 01/25/18 04:24 Carbon Dioxide 28.9 mmol/L (21-32) 01/25/18 04:24 BUN 18 mg/dL (7-18) 01/25/18 04:24 Creatinine 1.05 mg/dL (0.70-1.30) 01/25/18 04:24 Est GFR (MDRD) Af Amer > 60 (>60) 01/25/18 04:24 Est GFR (MDRD) Non-Af > 60 (>60) 01/25/18 04:24 Glucose 94 mg/dL (65-99) 01/25/18 04:24 Calcium 8.6 mg/dL (8.5-10.1) 01/25/18 04:24 Corrected Calcium 9.2 mg/dL (8.5-10.1) 01/25/18 04:24 Total Bilirubin 0.40 mg/dL (0.2-1.0) 01/25/18 04:24 AST 16 Units/L (15-37) 01/25/18 04:24 ALT 21 Units/L (12-78) 01/25/18 04:24 Alkaline Phosphatase 56 Units/L (46-116) 01/25/18 04:24 Creatine Kinase 90 Units/L (39-308) 01/23/18 09:21 CK-MB (CK-2) < 1.0 ng/mL (0-4.0) 01/23/18 09:21 CK/CKMB % Calc 1.1 % (<4) 01/23/18 09:21 Troponin I < 0.02 ng/mL (0-1.5) 01/23/18 09:21 C-Reactive Protein 1.30 mg/L (0-3.0) 01/23/18 04:34 Total Protein 6.3 g/dL (6.4-8.2) L 01/25/18 04:24 Albumin 3.2 g/dL (3.4-5.0) L 01/25/18 04:24 Globulin 3.1 g/dL (2.5-4.5) 01/25/18 04:24 Albumin/Globulin Ratio 1.0 Ratio (1.1-2.1) L 01/25/18 04:24 Triglycerides 99 mg/dL (0-150) 01/24/18 04:22 Cholesterol 180 mg/dL (0-200) 01/24/18 04:22 LDL Cholesterol, Calc 112 mg/dL (0-100) H 01/24/18 04:22 HDL Cholesterol 48 mg/dL (40-60) 01/24/18 04:22 Cholesterol/HDL Ratio 3.8 (0.0-5.0) 01/24/18 04:22 Specimen Type Clean catch urine 01/22/18 18:00 Urine Color Yellow (YELLOW) 01/22/18 18:00 Urine Appearance Clear (CLEAR) 01/22/18 18:00 Urine pH 6.0 (5.0 - 8.0) 01/22/18 18:00 Ur Specific [place] 1.010 (1.000-1.030) 01/22/18 18:00 Urine Protein Negative (NEGATIVE) 01/22/18 18:00 Urine Glucose (UA) Negative (NEGATIVE) 01/22/18 18:00 Urine Ketones Negative (NEGATIVE) 01/22/18 18:00 Urine Occult Blood Negative (NEGATIVE) 01/22/18 18:00 Urine Nitrite Negative (NEGATIVE) 01/22/18 18:00 Urine Bilirubin Negative (NEGATIVE) 01/22/18 18:00 Urine Urobilinogen Normal (NORMAL) 01/22/18 18:00 Ur Leukocyte Esterase 1+ (NEGATIVE) 01/22/18 18:00 Urine RBC None seen /HPF (NONE SEEN) 01/22/18 18:00 Urine WBC 0-2 /HPF (NONE SEEN) 01/22/18 18:00 Ur Squamous Epith Cells Negative /HPF (NEGATIVE) 01/22/18 18:00 Urine Bacteria Trace /HPF (NEGATIVE) 01/22/18 18:00 Ur Culture Indicated? No/not indicated 01/22/18 18:00 - Plan (1) Acute CVA (cerebrovascular accident) Status: Acute Plan: ASPIRIN, PLAVIX THERAPY, STATIN. CP AND CARDIAC MONITORING (2) Acute left-sided weakness Status: Acute Plan: CT HEAD ON ADMISSION IN ER WNL. ASPIRIN, PLAVIX THERAPY, STATIN. SERIAL CE AND REPEAT EKG, ECHO Q AM. FLP, CAROTID ARTERY CTA &. MRI BRAIN, BP AND CARDIAC MONITORING (3) Hypertension Status: Acute Qualifiers: Hypertension type: essential hypertension Qualified Code(s): I10 - Essential (primary) hypertension (4) Hx of transient ischemic attack (TIA) Status: Chronic (5) GERD (gastroesophageal reflux disease) Status: Chronic Qualifiers: Esophagitis presence: esophagitis presence not specified Qualified Code(s): K21.9 - Gastro-esophageal reflux disease without esophagitis (6) CAD (coronary artery disease) Status: Chronic Qualifiers: Coronary Disease-Associated Artery/Lesion type: [place] artery [place] vs. transplanted heart: [place] heart Associated angina: without angina Qualified Code(s): I25.10 - Atherosclerotic heart disease of [place] coronary artery without angina pectoris
[2018-01-25 18:33] LABS: FREE T4 (FREE THYROXINE) 1.24 ng/dL (0.76-1.46); TSH (3RD GENERATION) 3.343 uIU/mL (0.358-3.74)
[2018-01-25] MEDS: CRESTOR TAB 10 MG PO SCH (20:50)
[2018-01-26 05:13] LABS: BASOPHILS # (AUTO) 0.1 X10^3/uL (0.0-0.1); BASOPHILS % (AUTO) 0.8 % (0.2-1.0); EOSINOPHILS # (AUTO) 0.1 x10^3/uL (0.0-0.2); EOSINOPHILS % (AUTO) 1.6 % (0.9-2.9); HEMOGLOBIN 15.4 g/dL (13.5-18.0); LYMPHOCYTES # (AUTO) 1.1 X10^3/uL (1.3-2.9); LYMPHOCYTES % (AUTO) 16.9 % (21.0-51.0); MEAN CORPUSCULAR HEMOGLOBIN 30.3 pg (27.0-34.0); MEAN CORPUSCULAR HGB CONC 34.3 g/dL (33.0-35.0); MEAN CORPUSCULAR VOLUME 88.3 fL (80.0-100.0); MEAN PLATELET VOLUME 8.1 fL (7.4-11.0); MONOCYTES # (AUTO) 0.8 x10^3/uL (0.3-0.8); MONOCYTES % (AUTO) 11.4 % (0.0-13.0); NEUTROPHILS # (AUTO) 4.6 x10^3/uL (2.2-4.8); NEUTROPHILS % (AUTO) 69.3 % (42.0-75.0); PLATELET COUNT 221 X10^3/uL (150.0-450.0); RED CELL DISTRIBUTION WIDTH 13.3 % (11.6-16.5); WHITE BLOOD COUNT 6.7 X10^3/uL (3.6-10.0)
[2018-01-26 05:35] LABS: ALANINE AMINOTRANSFERASE 23 Units/L (12-78); ALBUMIN 3.5 g/dL (3.4-5.0); ALKALINE PHOSPHATASE 63 Units/L (46-116); ASPARTATE AMINO TRANSFERASE 18 Units/L (15-37); BLOOD UREA NITROGEN 24 mg/dL (7-18); CALCIUM 8.8 mg/dL (8.5-10.1); CARBON DIOXIDE 28.7 mmol/L (21-32); CHLORIDE 106 mmol/L (98-107); CREATININE 1.16 mg/dL (0.70-1.30); SODIUM 144 mmol/L (136-145); TOTAL PROTEIN 6.9 g/dL (6.4-8.2); eGFR NON BLACK RACES > 60 (>60)
[2018-01-26] MEDS: PLAVIX PO SCH (09:00)
[2018-01-26] MEDS: ASPIRIN 81 MG CHEWTAB PO SCH (09:00)
[2018-01-26] MEDS: NORVASC TAB 5 MG PO SCH (09:00)
[2018-01-26 09:11] VITALS: BP 179/78
[2018-01-26] MEDS ORDERED: FLUVIRIN IM ONE (11:18)
== END 2018-01-26 11:35 | DRG 65 ==
LOC: MED/SURG 11:27 → ER 11:27 → MED/SURG 14:26
PROVIDERS: ADMIT Internal Medicine; ATTEND Internal Medicine
DX: G81.94 Hemiplegia, unspecified affecting left nondominant side; M62.81 Muscle weakness (generalized); K21.9 Gastro-esophageal reflux disease without esophagitis; R06.02 Shortness of breath; I25.10 Atherosclerotic heart disease of native coronary artery without angina pectoris; R94.31 Abnormal electrocardiogram [ECG] [EKG]; I63.89 Other cerebral infarction; R20.0 Anesthesia of skin; Z23 Encounter for immunization; R51 Headache; Z86.73 Personal history of transient ischemic attack (TIA), and cerebral infarction without residual deficits; R26.89 Other abnormalities of gait and mobility
CPT/HCPCS: 36415; 70450; 70547; 70551; 71010; 71020; 71045; 71046; 80053; 80061; 81001; 82550; 82553; 84439; 84443; 84484; 85025; 85378; 85610; 85652; 85730; 86140; 90686; 93005; 93010; 94760; 96365; 97110; 97163; 97166; 97530; 99284; A4216; A4222; G0378